=== PATIENT | female | born 1960 | race Caucasian/White ===

== ENCOUNTER 2017-12-30 10:04 | Emergency (ER) | payer OTHER, MEDICAID, SELFPAY ==
[2017-12-30 10:13] VITALS: BP 139/79; PULSE 101; RESP 15; TEMP 37; O2SAT 97; BMI 20.3
--- NOTE | 2017-12-30 10:13 | DI.RAD.S_ITS ---
PROCEDURE: XR WRIST RT MIN 3V INDICATIONS: injury TECHNIQUE: 4 views of the wrist were acquired. COMPARISON: None. FINDINGS: Bones: There is a bone fragment identified on the dorsal aspect of the carpus on the lateral view, compatible with a fracture of the triquetrum. No additional fractures are evident. There is no widening of the scapholunate or lunotriquetral joints. Mild degenerative changes are noted involving the joints of the wrist. No suspicious osseous lesions are present. There is no dislocation. Soft tissues: No suspicious soft tissue calcifications. Soft tissue swelling on the dorsal aspect of the wrist is evident. IMPRESSION: Small triquetral avulsion fracture. Dictated by: Tee Tubbs M.D. on 12/30/2017 at 11:10 Approved by: Tee Tubbs M.D. on 12/30/2017 at 11:12
--- NOTE | 2017-12-30 10:16 | ED_ITS ---
HPI - Extremity Injury (Upper) General Chief Complaint: Extremity Injury, Upper Stated Complaint: HIKING, TRIPPED AND FELL Time Seen by Provider: 12/30/17 10:09 Source: patient Mode of arrival: ambulatory Limitations: no limitations History of Present Illness HPI narrative: 57-year-old female was hiking yesterday and tripped over a root and sustained a FOOSH injury to her right wrist. States that yesterday he was not hurting until last evening. She states that this morning head is more swollen and more painful. Took Motrin prior to arrival. Related Data Home Medications Medication Instructions Recorded Confirmed albuterol sulfate [ProAir HFA] 2 dose INHALATION Q4-6H PRN 12/30/17 12/30/17 empagliflozin [Jardiance] 12.5 mg PO DAILY 12/30/17 12/30/17 glipizide 10 mg PO BID 12/30/17 12/30/17 lisinopril 20 mg PO DAILY 12/30/17 12/30/17 metformin 1,000 mg PO BID 12/30/17 12/30/17 Allergies Allergy/AdvReac Type Severity Reaction Status Date / Time No Known Drug Allergies Allergy Verified 12/30/17 10:13 Review of Systems Constitutional Denies chills, Denies fever(s), Denies lethargy and Denies weakness Musculoskeletal Comments: No right shoulder pain No right elbow pain Does have pain with the right wrist Integumentary/Breasts Reports lesions, Reports rash and Reports wounds Neurologic Denies weakness Comments: Some tingling in her fingers otherwise no other neurologic symptoms Hematologic/Lymphatic Denies easy bleeding and Denies easy bruising [facility] Medical History Asthma (Acute) Diabetes (Acute) Hypertension (Acute) Smoker (Acute) Social History Smoking Status: Current every day smoker Exam Initial Vital Signs Initial Vital Signs: Vital Signs Temperature 98.6 F 12/30/17 10:13 Pulse Rate 101 H 12/30/17 10:13 Respiratory Rate 15 12/30/17 10:13 Blood Pressure 139/79 H 12/30/17 10:13 Pulse Oximetry 97 12/30/17 10:13 HENMT Head: normal to inspection and normocephalic Resp Effort & Inspection: normal respiratory effort Cardio Pulses: radial pulses present Skin Lesions: no lesions Rashes: no rashes Neuro Other: Sensation intact to light touch right upper extremity Extrem General: capillary refill normal Other: Right shoulder unremarkable for range of motion Right elbow unremarkable for range of motion Patient able to pronate without problems right upper extremity Pain with supination right upper extremity Pain with flexion or extension of the right wrist right upper extremity Fingers right hand unremarkable Swelling on the dorsum of the right hand with tenderness to palpation over the ulnar aspect. Course Orders Ordered: ED Orders 12/30/17 10:13 XR wrist RT min 3V Stat Discontinued Medications Acetaminophen (Tylenol) 975 mg PO NOW ONE Stop: 12/30/17 10:18 Last Admin: 12/30/17 10:18 Dose: 975 mg Vital Signs - 8 hr 12/30/17 10:13 12/30/17 10:22 Temperature 98.6 F Pulse Rate 101 H Pulse Rate [Right Radial] 72 Respiratory Rate 15 Blood Pressure 139/79 H Pulse Oximetry 97 MDM - Extremity Injury (Upper) Imaging Data Wrist x-ray: Radiologist's impression: PROCEDURE: XR WRIST RT MIN 3V INDICATIONS: injury TECHNIQUE: 4 views of the wrist were acquired. COMPARISON: None. FINDINGS: Bones: There is a bone fragment identified on the dorsal aspect of the carpus on the lateral view, compatible with a fracture of the triquetrum. No additional fractures are evident. There is no widening of the scapholunate or lunotriquetral joints. Mild degenerative changes are noted involving the joints of the wrist. No suspicious osseous lesions are present. There is no dislocation. Soft tissues: No suspicious soft tissue calcifications. Soft tissue swelling on the dorsal aspect of the wrist is evident. IMPRESSION: Small triquetral avulsion fracture. Dictated by: Tee Tubbs M.D. on 12/30/2017 at 11:10 MDM Narrative Medical decision making narrative: Patient neurovascularly intact. Small triquetrum all avulsion fracture right wrist. Patient provided with wrist splint. She was given care instructions. She was instructed to follow up with her primary doctor for further evaluation. She was given return precautions. She expressed understanding and agreement of plan Discharge Plan Departure Patient Disposition: Home, Self-Care Clinical Impression: Fracture of triquetrum of right wrist Instructions: DI for a Hand Fracture Activity Restrictions/Additional Instructions: Wear the splint like we discussed. Call your primary doctor on Monday for a follow-up. Return to the emergency department for any new or worsening symptoms Prescriptions: No Action lisinopril 20 mg tablet 20 mg PO DAILY RF: 0 glipizide 10 mg tablet 10 mg PO BID RF: 0 metformin 1,000 mg tablet 1,000 mg PO BID RF: 0 albuterol sulfate [ProAir HFA] 90 mcg/actuation HFA aerosol inhaler 2 dose Inhalation Q4-6H PRN (Reason: Wheezing) RF: 0 empagliflozin [Jardiance] 25 mg tablet 12.5 mg PO DAILY RF: 0
[2017-12-30] MEDS: ACETAMINOPHEN 325 MG TABLET 975 MG PO (10:18)
[2017-12-30 10:22] VITALS: PULSE 72
[2017-12-30 11:24] VITALS: BP 140/85; PULSE 82; RESP 16; O2SAT 99
== END 2017-12-30 11:32 | disposition home or self-care (01) ==
PROVIDERS: Emergency Provider Emergency Medicine; PCP Family Medicine
DX: S62.111A Displaced fracture of triquetrum [cuneiform] bone, right wrist, initial encounter for closed fracture (principal); W01.0XXA Fall on same level from slipping, tripping and stumbling without subsequent striking against object, initial encounter; Y93.01 Activity, walking, marching and hiking
CPT/HCPCS: 73110; 99283

== ENCOUNTER 2018-02-09 14:22 | Emergency (ER) | payer OTHER, MEDICAID, SELFPAY ==
[2018-02-09 14:31] VITALS: BP 75/45; PULSE 74; RESP 16; O2SAT 95; BMI 20.3
[2018-02-09] MEDS: SODIUM CHLORIDE 0.9% 1,000 ML 1000 ML IV (14:52)
[2018-02-09 15:00] LABS: Add Manual Diff / Slide Review NO; Eosinophils Percent Auto 2.4 % (2-4); Hematocrit 47.5 % (36-46); Hemoglobin 15.9 g/dL (12.0-16.0); Lymphocytes Percent Auto 52.1 % (25-40); Mean Corpuscular HGB Conc 33.4 % (30-36); Mean Corpuscular Hemoglobin 31.9 PG (26-34); Mean Corpuscular Volume 95.5 fL (80-100); Monocytes Percent Auto 8.2 % (3-14); Neutrophils Absolute Auto 2100 /uL (3000-5900); Neutrophils Percent Auto 36.3 % (50-75); Platelet Count 248 X10^3/uL (150-400); Red Blood Cell Count 4.98 X10^6/uL (4.0-5.2); Red Cell Distribution Width 14.8 % (11.6-14.8); White Blood Cell Count 5.7 X10^3/uL (4.5-11.0)
[2018-02-09 15:05] LABS: Alanine Aminotransferase 60 IU/L (9-52); Albumin 4.4 g/dL (3.5-5.0); Albumin Globulin Ratio 1.8 (1.0-2.8); Alkaline Phosphatase 61 U/L (38-126); Aspartate Aminotransferase 105 IU/L (14-36); BUN Creatinine Ratio 23.6 (6-22); Bilirubin Total 0.6 mg/dL (0.2-1.3); Bilirubin Unconjugated 0.3 mg/dL (0.0-1.1); Blood Urea Nitrogen 26 mg/dL (7-17); Calcium 8.9 mg/dL (8.4-10.2); Carbon Dioxide 28 mmol/L (22-32); Chloride 92 mmol/L (98-107); Estimated Glomerular Filt Rate 51.2 mL/min (>60); Globulin 2.5 g/dL (1.7-4.1); Glucose 212 mg/dL (70-100); Lipase 804 U/L (23-300); Magnesium 1.9 mg/dL (1.6-2.3); Sodium 136 mmol/L (137-145); Total Protein 6.9 g/dL (6.3-8.2)
[2018-02-09 15:09] LABS: HEMOLYSIS 29 (0-50); Potassium 3.5 mmol/L (3.4-5.1)
--- NOTE | 2018-02-09 16:12 | ED_ITS ---
HPI - Alcohol <TIFFANIE Kingsley - Last Filed: 02/09/18 22:00> General Chief Complaint: Toxicology Problem Stated Complaint: DRINKING OVER A WEEK, DIABETES, CAN'T WALK Time Seen by Provider: 02/09/18 16:36 History of Present Illness HPI narrative: 58-year-old female history of alcohol abuse here for request for detox treatment. She states that she had a year of sobriety and then slipped and started drinking again 7 months ago. She reports her liver release in the that she has been drinking approximately a 5th a day of vodka. Over this time frame. She reports her last drink was just prior to arrival. She denies any suicidal ideation she denies any homicidal ideation. She does state that she does get withdrawal symptoms such hands shaking in the past. She denies any physical complaints at this time. She is willing to do inpatient detox treatment MD complaint: alcohol intoxication, alcohol dependence and desires rehab Related Data Home Medications Medication Instructions Recorded Confirmed albuterol sulfate [ProAir HFA] 2 dose INHALATION Q4-6H PRN 12/30/17 02/09/18 empagliflozin [Jardiance] 12.5 mg PO DAILY 12/30/17 02/09/18 glipizide 10 mg PO BID 12/30/17 02/09/18 lisinopril 20 mg PO DAILY 12/30/17 02/09/18 metformin 1,000 mg PO BID 12/30/17 02/09/18 Previous Rx's Medication Instructions Recorded lorazepam 1 mg PO DAILY #18 tab 02/09/18 ondansetron 4 mg PO Q6-8H PRN #12 tab 02/09/18 Allergies Allergy/AdvReac Type Severity Reaction Status Date / Time No Known Drug Allergies Allergy Verified 12/30/17 10:13 Review of Systems <TIFFANIE Kingsley - Last Filed: 02/09/18 22:00> Review of Systems Patient desires alcohol detox Eyes Denies change in vision, Denies eye discharge, Denies irritation and Denies loss of vision ENT Ears, Nose, Mouth, and Throat: Denies change in voice, Denies neck pain and Denies sore throat Cardiovascular Denies chest pain, Denies irregular heart rhythm, Denies lightheadedness, Denies palpitations, Denies dyspnea, Denies dyspnea on exertion and Denies orthopnea Respiratory Denies cough, Denies dyspnea, Denies dyspnea on exertion and Denies wheezing Gastrointestinal Gastrointestinal: Denies abdominal pain, Denies change in bowel habits, Denies diarrhea, Denies nausea and Denies vomiting Genitourinary Denies hematuria, Denies flank pain, Denies urinary incontinence and Denies urinary urgency Musculoskeletal Denies neck pain Integumentary/Breasts Denies pruritus, Denies erythema, Denies rash and Denies wounds Neurologic Denies confusion and Denies loss of vision Psychiatric Denies anxiety, Denies confusion, Denies depression, Denies homicidal ideation and Denies suicidal ideation Endocrine Denies palpitations Hematologic/Lymphatic Denies easy bruising Allergic/Immunologic Denies wheezing Exam <TIFFANIE Kingsley - Last Filed: 02/09/18 22:00> Initial Vital Signs Initial Vital Signs: Vital Signs Pulse Rate 74 02/09/18 14:31 Respiratory Rate 16 02/09/18 14:31 Blood Pressure 75/45 L 02/09/18 14:31 Pulse Oximetry 95 02/09/18 14:31 Const General: cooperative and well developed Nutritional Appearance: well nourished Orientation: alert, awake, oriented x3 and not confused [facility] Mouth: oral mucosae normal and moist mucous membranes Eyes Eyelids: eyelids normal Conjunctivae: conjunctivae normal Sclera: sclerae normal Pupils: PERRL Resp Effort & Inspection: normal respiratory effort, able to speak in complete sentences, no respiratory distress and no use of accessory muscles Auscultation: clear to auscultation bilaterally, no rales, no rhonchi and no wheezes Cardio Rate: regular rate Rhythm: regular rhythm Heart Sounds: no click, no gallops, no murmurs and no rubs Skin General: no rashes or lesions noted, No jaundice and No petechiae Neuro General: alert, oriented x3, gait normal and no focal motor deficits Speech: speech normal Psych Appearance: well kempt Mental Status: mental status grossly normal Attitude: cooperative Thought Content: normal and suicidality Judgment: judgment good <Sandy Dawson DO - Last Filed: 02/10/18 03:22> Initial Vital Signs Initial Vital Signs: Vital Signs Pulse Rate 74 02/09/18 14:31 Respiratory Rate 16 02/09/18 14:31 Blood Pressure 75/45 L 02/09/18 14:31 Pulse Oximetry 95 02/09/18 14:31 Course <TIFFANIE Kingsley - Last Filed: 02/09/18 22:00> Orders Ordered: Discontinued Medications Sodium Chloride (Normal Saline 0.9%) 1,000 mls @ 1,000 mls/hr IV BOLUS ONE Stop: 02/09/18 15:50 Last Infusion: 02/09/18 16:01 Dose: 0 mls/hr Admin: 02/09/18 14:52 Dose: 1,000 mls/hr Lorazepam (Ativan) 1 mg PO NOW ONE Stop: 02/09/18 18:44 Last Admin: 02/09/18 19:06 Dose: 1 mg Vital Signs - 8 hr 02/09/18 20:01 Temperature 97.6 F Pulse Rate 90 Respiratory Rate 18 Blood Pressure [Left Arm] 153/92 H Pulse Oximetry 96 <Sandy Dawson DO - Last Filed: 02/10/18 03:22> Orders Ordered: Discontinued Medications Sodium Chloride (Normal Saline 0.9%) 1,000 mls @ 1,000 mls/hr IV BOLUS ONE Stop: 02/09/18 15:50 Last Infusion: 02/09/18 16:01 Dose: 0 mls/hr Admin: 02/09/18 14:52 Dose: 1,000 mls/hr Lorazepam (Ativan) 1 mg PO NOW ONE Stop: 02/09/18 18:44 Last Admin: 02/09/18 19:06 Dose: 1 mg Vital Signs - 8 hr 02/09/18 20:01 Temperature 97.6 F Pulse Rate 90 Respiratory Rate 18 Blood Pressure [Left Arm] 153/92 H Pulse Oximetry 96 MDM - Alcohol <TIFFANIE Kingsley - Last Filed: 02/09/18 22:00> Lab Data Result diagrams: 02/09/18 14:40 02/09/18 14:40 Labs: Lab Results 02/09/18 02/09/18 02/09/18 Range/Units 14:40 14:40 17:20 WBC 5.7 (4.5-11.0) X10^3/uL RBC 4.98 (4.0-5.2) X10^6/uL Hgb 15.9 (12.0-16.0) g/dL Hct 47.5 H (36-46) % MCV 95.5 (80-100) fL MCH 31.9 (26-34) PG MCHC 33.4 (30-36) % RDW 14.8 (11.6-14.8) % Plt Count 248 (150-400) X10^3/uL Neut % (Auto) 36.3 L (50-75) % Lymph % (Auto) 52.1 H (25-40) % Scott % (Auto) 8.2 (3-14) % Eos % (Auto) 2.4 (2-4) % Baso % (Auto) 1.0 (0-2) % Neut # (Auto) 2100 L (5399-7920) /uL Sodium 136 L (137-145) mmol/L Potassium 3.5 (3.4-5.1) mmol/L Chloride 92 L (98-107) mmol/L Carbon Dioxide 28 (22-32) mmol/L BUN 26 H (7-17) mg/dL Creatinine 1.10 H (0.52-1.04) mg/dL Estimated GFR 51.2 L (>60) mL/min BUN/Creatinine Ratio 23.6 H (6-22) Glucose 212 H (70-100) mg/dL Calcium 8.9 (8.4-10.2) mg/dL Magnesium 1.9 (1.6-2.3) mg/dL Total Bilirubin 0.6 (0.2-1.3) mg/dL Conjugated Bilirubin 0.0 (0.0-0.3) md/dL Unconjugated Bilirubin 0.3 (0.0-1.1) mg/dL AST 105 H (14-36) IU/L ALT 60 H (9-52) IU/L Alkaline Phosphatase 61 (38-126) U/L Total Protein 6.9 (6.3-8.2) g/dL Albumin 4.4 (3.5-5.0) g/dL Globulin 2.5 (1.7-4.1) g/dL Albumin/Globulin Ratio 1.8 (1.0-2.8) Lipase 804 H (23-300) U/L Urine Opiates Screen Negative (Negative) Ur Oxycodone Screen Negative (Negative) Urine Methadone Screen Negative (Negative) Ur Barbiturates Screen Negative (Negative) U Tricyclic Antidepress Negative (Negative) Ur Phencyclidine Scrn Negative (Negative) Ur Amphetamines Screen Negative (Negative) U Methamphetamines Scrn Negative (Negative) Ur MDMA Scrn (Ecstasy) Negative (Negative) U Benzodiazepines Scrn Negative (Negative) Urine Cocaine Screen Negative (Negative) U Marijuana (THC) Screen Negative (Negative) Ethyl Alcohol 334 mg/dL MDM Narrative Medical decision making narrative: CBC was obtained and was unremarkable. Chem panel shows decreased GFR and also increased lipase believe this is due to alcohol and will hopefully resolve with alcohol cessation. She is prescribed Ativan taper dose and also Zofran to help with the nausea. Urine drug screen was negative. Medically cleared for inpatient detox. She is accepted by [facility] [place] for inpatient detox. Care as [facility] by [facility]. Follow up with primary care provider. Return emergency room for any worsening symptoms. <Sandy Dawson, - Last Filed: 02/10/18 03:22> Lab Data Labs: Lab Results 02/09/18 02/09/18 02/09/18 Range/Units 14:40 14:40 17:20 WBC 5.7 (4.5-11.0) X10^3/uL RBC 4.98 (4.0-5.2) X10^6/uL Hgb 15.9 (12.0-16.0) g/dL Hct 47.5 H (36-46) % MCV 95.5 (80-100) fL MCH 31.9 (26-34) PG MCHC 33.4 (30-36) % RDW 14.8 (11.6-14.8) % Plt Count 248 (150-400) X10^3/uL Neut % (Auto) 36.3 L (50-75) % Lymph % (Auto) 52.1 H (25-40) % Scott % (Auto) 8.2 (3-14) % Eos % (Auto) 2.4 (2-4) % Baso % (Auto) 1.0 (0-2) % Neut # (Auto) 2100 L (9696-3296) /uL Sodium 136 L (137-145) mmol/L Potassium 3.5 (3.4-5.1) mmol/L Chloride 92 L (98-107) mmol/L Carbon Dioxide 28 (22-32) mmol/L BUN 26 H (7-17) mg/dL Creatinine 1.10 H (0.52-1.04) mg/dL Estimated GFR 51.2 L (>60) mL/min BUN/Creatinine Ratio 23.6 H (6-22) Glucose 212 H (70-100) mg/dL Calcium 8.9 (8.4-10.2) mg/dL Magnesium 1.9 (1.6-2.3) mg/dL Total Bilirubin 0.6 (0.2-1.3) mg/dL Conjugated Bilirubin 0.0 (0.0-0.3) md/dL Unconjugated Bilirubin 0.3 (0.0-1.1) mg/dL AST 105 H (14-36) IU/L ALT 60 H (9-52) IU/L Alkaline Phosphatase 61 (38-126) U/L Total Protein 6.9 (6.3-8.2) g/dL Albumin 4.4 (3.5-5.0) g/dL Globulin 2.5 (1.7-4.1) g/dL Albumin/Globulin Ratio 1.8 (1.0-2.8) Lipase 804 H (23-300) U/L Urine Opiates Screen Negative (Negative) Ur Oxycodone Screen Negative (Negative) Urine Methadone Screen Negative (Negative) Ur Barbiturates Screen Negative (Negative) U Tricyclic Antidepress Negative (Negative) Ur Phencyclidine Scrn Negative (Negative) Ur Amphetamines Screen Negative (Negative) U Methamphetamines Scrn Negative (Negative) Ur MDMA Scrn (Ecstasy) Negative (Negative) U Benzodiazepines Scrn Negative (Negative) Urine Cocaine Screen Negative (Negative) U Marijuana (THC) Screen Negative (Negative) Ethyl Alcohol 334 mg/dL Discharge Plan Departure Patient Disposition: Home, Self-Care Clinical Impression: Alcohol withdrawal syndrome Discharge Date/Time: 02/09/18 20:35 Interventions: ED Discharge Assessment Last Done: 02/09/18 20:35 Instructions: DI for Alcohol Abuse Activity Restrictions/Additional Instructions: Check-in into crisis [facility] center as specified time this evening. You are prescribed Ativan taper dose to help with withdrawal syndromes. You are also prescribe Zofran to help with the nausea vomiting use as directed. Care as directed by crisis [facility]. Follow up with her primary care provider next week for re-evaluation. For any worsening symptoms return to the emergency room. Prescriptions: New lorazepam 1 mg tablet 1 mg PO DAILY Qty: 18 RF: 0 ondansetron 4 mg tablet,disintegrating 4 mg PO Q6-8H PRN (Reason: nausea and vomiting) Qty: 12 RF: 0 No Action lisinopril 20 mg tablet 20 mg PO DAILY RF: 0 glipizide 10 mg tablet 10 mg PO BID RF: 0 metformin 1,000 mg tablet 1,000 mg PO BID RF: 0 albuterol sulfate [ProAir HFA] 90 mcg/actuation HFA aerosol inhaler 2 dose Inhalation Q4-6H PRN (Reason: Wheezing) RF: 0 empagliflozin [Jardiance] 25 mg tablet 12.5 mg PO DAILY RF: 0 Referrals: Edgardo Plunkett DO [Primary Care Provider] - <Sandy Dawson DO - Last Filed: 02/10/18 03:22> Cosign ED Attending Shyamature Attestation: I was immediately available in the department for consultation. Documentation has been reviewed. I agree with assessment and plan.
[2018-02-09 16:19] VITALS: BP 107/73; PULSE 86; RESP 18; TEMP 36.1; O2SAT 96
[2018-02-09 16:37] LABS: Ethanol (ETOH) 334 mg/dL
[2018-02-09 17:38] LABS: Urine Amphetamines Negative (Negative); Urine Barbiturates Negative (Negative); Urine Benzodiazepines Negative (Negative); Urine Cocaine Negative (Negative); Urine MDMA Negative (Negative); Urine Methadone Negative (Negative); Urine Methamphetamines Negative (Negative); Urine Morphine/Opi cutoff 2000 Negative (Negative); Urine Oxycodone Negative (Negative); Urine Phencyclidine Negative (Negative); Urine Tetrahydrocannabinol Negative (Negative); Urine Tricyclic Antidepressant Negative (Negative)
[2018-02-09 18:51] VITALS: BP 147/83; PULSE 80; RESP 16; O2SAT 96
[2018-02-09] MEDS: LORazepam 0.5 MG TABLET 1 MG PO (19:06)
[2018-02-09 20:01] VITALS: BP 153/92; PULSE 90; RESP 18; TEMP 36.4; O2SAT 96
== END 2018-02-09 20:35 | disposition home or self-care (01) ==
PROVIDERS: Emergency Medicine; Emergency Provider Nurse Practitioner Family; PCP Family Medicine
DX: F10.239 Alcohol dependence with withdrawal, unspecified (principal)
CPT/HCPCS: 36591; 80053; 80076; 80305; 80320; 82075; 82962; 83690; 83735; 85025; 96360; 99283; 99284

== ENCOUNTER 2018-04-14 06:54 | Inpatient (IN) | payer OTHER, MEDICAID, SELFPAY ==
[2018-04-14] VITALS (19 sets, daily range): BP systolic 86–148; BP diastolic 53–91; PULSE 68–111; RESP 12–23; TEMP 36.6–36.8; O2SAT 96–99; BMI 18.8; BMI 17.7
--- NOTE | 2018-04-14 07:15 | ED.NAVMDI ---
HPI - Nausea/Vomiting/Diarrhea General Chief complaint: GI Bleed Stated complaint: needs to detox Time Seen by Provider: 04/14/18 07:06 Source: patient and old records reviewed Mode of arrival: ambulatory Limitations: no limitations History of Present Illness HPI Narrative: Patient is a 58-year-old female who presents with all vomiting and shaking. She is an alcoholic who drinks a pt a day and has not had a drink for 2 and half days because she wants to stop. She is subsequently started of vomiting a dark brown coffee-ground like substance. She has had about 5-6 episodes. No diarrhea or black stools. No vomiting of bright red blood. No history of varices. She has abdominal pain unable to eat or drink anything. The diarrhea no fever. She does have some mild shakes now. MD complaint: nausea, vomiting and abdominal pain Related Data Home Medications Medication Instructions Recorded Confirmed albuterol sulfate [ProAir HFA] 2 dose INHALATION Q4-6H PRN 12/30/17 04/14/18 empagliflozin [Jardiance] 12.5 mg PO DAILY 12/30/17 04/14/18 glipizide 10 mg PO BID 12/30/17 04/14/18 lisinopril 20 mg PO DAILY 12/30/17 04/14/18 metformin 1,000 mg PO BID 12/30/17 04/14/18 Allergies Allergy/AdvReac Type Severity Reaction Status Date / Time No Known Drug Allergies Allergy Verified 12/30/17 10:13 Review of Systems Review of Systems All systems reviewed & are unremarkable except as noted in HPI and below Constitutional Denies chills, Denies fever(s), Denies lethargy and Denies weakness Cardiovascular Denies chest pain, Denies irregular heart rhythm, Denies lightheadedness, Denies palpitations, Denies dyspnea, Denies dyspnea on exertion and Denies orthopnea Respiratory Denies cough, Denies dyspnea, Denies dyspnea on exertion and Denies wheezing Gastrointestinal Gastrointestinal: Reports as per HPI Musculoskeletal Denies back pain, Denies muscle weakness, Denies numbness and Denies tingling Integumentary/Breasts Denies pruritus, Denies erythema, Denies rash and Denies wounds Neurologic Denies numbness, Denies tingling, Reports tremor(s) and Denies weakness Psychiatric Reports as per HPI Comments: Alcohol abuse Endocrine Denies palpitations Allergic/Immunologic Denies wheezing PFSH Medical History Bunion, left (Acute) History of ectopic (Acute) Alcohol abuse (Acute) Asthma (Acute) Diabetes (Acute) Hypertension (Acute) Smoker (Acute) Surgical History Postsurgical arthrodesis status (Acute ~2007) Social History household members: spouse Smoking Status: Current every day smoker alcohol intake: current Exam Initial Vital Signs Initial Vital Signs: Vital Signs Temperature 97.9 F 04/14/18 07:10 Pulse Rate 111 H 04/14/18 07:10 Respiratory Rate 16 04/14/18 07:10 Blood Pressure 104/79 04/14/18 07:10 Pulse Oximetry 99 04/14/18 07:10 GENERAL: Thin female appears older than stated a HEENT: Head atraumatic,EOMI, pupils reactive, neck is supple CARDIOVASCULAR: Tachycardia no murmur no rubs RESPIRATORY: Breath sounds equal bilaterally, no wheezes rales or rhonchi. ABDOMEN: Soft, diffusely tender. Normoactive bowel sounds all 4 quadrants. No guarding or rebound. EXTREMITIES: Normal range of motion, no clubbing or edema. Neurovascularly intact NEUROLOGICAL: Alert and oriented x4.Normal gait and speech. Cranial nerves II through XII grossly intact. + tremor SKIN: Warm, dry, no laceration, no petechiae, no rashes or lesions. No jaundice Course Orders Ordered: ED Orders 04/14/18 07:24 Ketones (Beta-Hydroxybutyrate) Stat Lactate (Lactic Acid) Stat 04/14/18 07:25 Complete Blood Count AUTO DIFF Stat Comprehensive Metabolic Panel Stat Lipase Stat Partial Thromboplastin Time Stat Prothrombin Time INR Stat Type and Screen Stat 04/14/18 07:40 Ethanol (ETOH) Stat Troponin & CK Cardiac Panel Stat 04/14/18 08:00 EKG-12 Lead Stat 04/14/18 10:55 MRSA PCR Stat 04/14/18 11:25 Consult to Dietitian, Adult Routine 04/14/18 13:44 Gastric Occult with pH 04/15/18 05:00 Complete Blood Count AUTO DIFF DAILY Comprehensive Metabolic Panel DAILY 04/16/18 05:00 Complete Blood Count AUTO DIFF DAILY Comprehensive Metabolic Panel DAILY 04/17/18 05:00 Complete Blood Count AUTO DIFF DAILY Comprehensive Metabolic Panel DAILY Albuterol (Ventolin Hfa) 1 puff INH Q4H PRN PRN Reason: Wheezing Albuterol/Ipratropium (Duoneb) 3 ml INH RTQ6HR PRN PRN Reason: Shortness Of Breath Glipizide (Glucotrol) 10 mg PO BID [facility] Hydromorphone HCl (Dilaudid) 0.5 mg IV Q2H PRN PRN Reason: Pain, Moderate (4-6) Magnesium Sulfate 2 gm/ Folic Acid 1 mg/ Thiamine HCl 100 mg / Multivitamins 10 ml/ Sodium Chloride 1,015.2 mls @ 125 mls/hr IV NOW ONE Stop: 04/14/18 16:18 Last Infusion: 04/14/18 10:42 Dose: 125 mls/hr Admin: 04/14/18 09:03 Dose: 125 mls/hr Lactated Ringer's (Lactated Ringers) 1,000 mls @ 100 mls/hr IV CONT [facility] Octreotide Acetate 500 mcg/ (Sodium Chloride) 101 mls @ 10.1 mls/hr IV CONT [facility]; Protocol Insulin Aspart (Novolog Flexpen) 1 unit SUBCUT AC [facility]; Protocol Lisinopril (Zestril) 20 mg PO DAILY [facility] Lorazepam (Ativan) 1 mg IV Q1H PRN PRN Reason: Anxiety Lorazepam (Ativan) 2 mg IV Q1H PRN PRN Reason: Anxiety Nicotine (Nicoderm) 14 mg TOP DAILY [facility] Last Admin: 04/14/18 14:35 Dose: 14 mg Empagliflozin [ (Jardiance] 12.5 Mg)) 12.5 mg PO DAILY [facility] Last Admin: 04/14/18 14:35 Dose: Ondansetron HCl (Zofran) 4 mg IV Q4HR PRN PRN Reason: Nausea And Vomiting Pantoprazole Sodium (Protonix) 40 mg IV BID [facility] Last Admin: 04/14/18 14:24 Dose: Not Given Discontinued Medications Sodium Chloride (Normal Saline 0.9%) 1,000 mls @ 1,000 mls/hr IV BOLUS ONE Stop: 04/14/18 08:20 Last Infusion: 04/14/18 09:03 Dose: 0 mls/hr Admin: 04/14/18 07:56 Dose: 1,000 mls/hr Lorazepam (Ativan) 1 mg IV NOW ONE Stop: 04/14/18 07:23 Last Admin: 04/14/18 07:56 Dose: 1 mg Octreotide Acetate (Sandostatin) 50 mcg IV NOW ONE Stop: 04/14/18 13:19 Last Admin: 04/14/18 14:35 Dose: 50 mcg Ondansetron HCl (Zofran) 4 mg IV NOW ONE Stop: 04/14/18 07:22 Last Admin: 04/14/18 07:56 Dose: 4 mg Pantoprazole Sodium (Protonix) 40 mg IV NOW ONE Stop: 04/14/18 07:22 Last Admin: 04/14/18 07:56 Dose: 40 mg Vital Signs - 8 hr 04/14/18 07:10 04/14/18 07:30 04/14/18 07:56 Temperature 97.9 F Pulse Rate 111 H 107 H 102 H Respiratory Rate 16 14 Blood Pressure 104/79 Blood Pressure [102/69] 98/69 Pulse Oximetry 99 04/14/18 08:00 04/14/18 09:00 04/14/18 09:15 Temperature Pulse Rate 99 H 84 82 Respiratory Rate 20 19 17 Blood Pressure Blood Pressure [102/69] 102/69 86/53 L 100/79 Pulse Oximetry 98 96 04/14/18 09:30 04/14/18 10:00 04/14/18 11:03 Temperature 97.9 F Pulse Rate 80 80 96 H Respiratory Rate 19 19 16 Blood Pressure 103/72 Blood Pressure [102/69] 101/64 94/62 Pulse Oximetry 97 96 04/14/18 14:09 Temperature Pulse Rate 79 Respiratory Rate 17 Blood Pressure 107/82 Blood Pressure [102/69] Pulse Oximetry 99 Blood pressure at 9:47 a.m. 101/64 heart rate 81 MDM - Nausea/Vomiting/Diarrhea Medical Records Attestation: I reviewed the patient's medical records. Lab Data Attestation: I reviewed the patient's lab results. Anion Gap 32 Result diagrams: 04/14/18 07:25 04/14/18 07:25 Lab Results 04/14/18 04/14/18 04/14/18 Range/Units 07:24 07:24 07:25 WBC 9.0 (4.5-11.0) X10^3/uL RBC 4.37 (4.0-5.2) X10^6/uL Hgb 14.4 (12.0-16.0) g/dL Hct 42.6 (36-46) % MCV 97.4 (80-100) fL MCH 32.8 (26-34) PG MCHC 33.7 (30-36) % RDW 14.9 H (11.6-14.8) % Plt Count 171 (150-400) X10^3/uL Neut % (Auto) 83.7 H (50-75) % Lymph % (Auto) 8.2 L (25-40) % [place] % (Auto) 7.7 (3-14) % Eos % (Auto) 0.1 L (2-4) % Baso % (Auto) 0.3 (0-2) % Neut # (Auto) 7500 H (9692-5378) /uL PT (10.1-12.7) SECONDS INR (0.9-1.3) APTT (26.4-36.2) SECONDS Sodium (137-145) mmol/L Potassium (3.4-5.1) mmol/L Chloride (98-107) mmol/L Carbon Dioxide (22-32) mmol/L BUN (7-17) mg/dL Creatinine (0.52-1.04) mg/dL Estimated GFR (>60) mL/min BUN/Creatinine Ratio (6-22) Glucose (70-100) mg/dL Lactate 1.2 (0.7-2.1) mmol/L Calcium (8.4-10.2) mg/dL Total Bilirubin (0.2-1.3) mg/dL AST (14-36) IU/L ALT (9-52) IU/L Alkaline Phosphatase (38-126) U/L Total Creatine Kinase (30-135) U/L CK-MB (CK-2) (<2.37) ng/mL CK-MB (CK-2) Rel Index (1.5-5.0) % Troponin I (0.01-0.034) ng/mL Total Protein (6.3-8.2) g/dL Albumin (3.5-5.0) g/dL Globulin (1.7-4.1) g/dL Albumin/Globulin Ratio (1.0-2.8) Lipase (23-300) U/L Nasal Screen MRSA (PCR) (Negative) Ethyl Alcohol mg/dL Ketones 11.43 H (<0.27) mmol/L Blood Type Antibody Screen 04/14/18 04/14/18 04/14/18 Range/Units 07:25 07:25 07:25 WBC (4.5-11.0) X10^3/uL RBC (4.0-5.2) X10^6/uL Hgb (12.0-16.0) g/dL Hct (36-46) % MCV (80-100) fL MCH (26-34) PG MCHC (30-36) % RDW (11.6-14.8) % Plt Count (150-400) X10^3/uL Neut % (Auto) (50-75) % Lymph % (Auto) (25-40) % [place] % (Auto) (3-14) % Eos % (Auto) (2-4) % Baso % (Auto) (0-2) % Neut # (Auto) (0855-0372) /uL PT 10.1 (10.1-12.7) SECONDS INR 0.9 (0.9-1.3) APTT 32 (26.4-36.2) SECONDS Sodium 132 L (137-145) mmol/L Potassium 4.0 (3.4-5.1) mmol/L Chloride 87 L (98-107) mmol/L Carbon Dioxide 13 L (22-32) mmol/L BUN 24 H (7-17) mg/dL Creatinine 1.10 H (0.52-1.04) mg/dL Estimated GFR 51.2 L (>60) mL/min BUN/Creatinine Ratio 21.8 (6-22) Glucose 234 H (70-100) mg/dL Lactate (0.7-2.1) mmol/L Calcium 10.0 (8.4-10.2) mg/dL Total Bilirubin 1.2 (0.2-1.3) mg/dL AST 112 H (14-36) IU/L ALT 111 H (9-52) IU/L Alkaline Phosphatase 64 (38-126) U/L Total Creatine Kinase (30-135) U/L CK-MB (CK-2) (<2.37) ng/mL CK-MB (CK-2) Rel Index (1.5-5.0) % Troponin I (0.01-0.034) ng/mL Total Protein 7.7 (6.3-8.2) g/dL Albumin 5.3 H (3.5-5.0) g/dL Globulin 2.4 (1.7-4.1) g/dL Albumin/Globulin Ratio 2.2 (1.0-2.8) Lipase 144 (23-300) U/L Nasal Screen MRSA (PCR) (Negative) Ethyl Alcohol mg/dL Ketones (<0.27) mmol/L Blood Type O Negative Antibody Screen Negative 04/14/18 04/14/18 04/14/18 Range/Units 07:40 07:40 10:55 WBC (4.5-11.0) X10^3/uL RBC (4.0-5.2) X10^6/uL Hgb (12.0-16.0) g/dL Hct (36-46) % MCV (80-100) fL MCH (26-34) PG MCHC (30-36) % RDW (11.6-14.8) % Plt Count (150-400) X10^3/uL Neut % (Auto) (50-75) % Lymph % (Auto) (25-40) % [place] % (Auto) (3-14) % Eos % (Auto) (2-4) % Baso % (Auto) (0-2) % Neut # (Auto) (6592-3828) /uL PT (10.1-12.7) SECONDS INR (0.9-1.3) APTT (26.4-36.2) SECONDS Sodium (137-145) mmol/L Potassium (3.4-5.1) mmol/L Chloride (98-107) mmol/L Carbon Dioxide (22-32) mmol/L BUN (7-17) mg/dL Creatinine (0.52-1.04) mg/dL Estimated GFR (>60) mL/min BUN/Creatinine Ratio (6-22) Glucose (70-100) mg/dL Lactate (0.7-2.1) mmol/L Calcium (8.4-10.2) mg/dL Total Bilirubin (0.2-1.3) mg/dL AST (14-36) IU/L ALT (9-52) IU/L Alkaline Phosphatase (38-126) U/L Total Creatine Kinase 132 (30-135) U/L CK-MB (CK-2) 3.60 H (<2.37) ng/mL CK-MB (CK-2) Rel Index 2.7 (1.5-5.0) % Troponin I 0.029 (0.01-0.034) ng/mL Total Protein (6.3-8.2) g/dL Albumin (3.5-5.0) g/dL Globulin (1.7-4.1) g/dL Albumin/Globulin Ratio (1.0-2.8) Lipase (23-300) U/L Nasal Screen MRSA (PCR) Negative for mrsa (Negative) Ethyl Alcohol < 10 mg/dL Ketones (<0.27) mmol/L Blood Type Antibody Screen Point of Care Testing Glucose POC 160 ECG Data Attestation: I personally reviewed and interpreted this ECG as follows: Prior ECG tracings: not available for review Interpretation: Sinus rhythm rate 93 low voltage AR interval 164 QRS 88 QTC [address] changes. No priors to compare MDM Narrative Medical decision making narrative: Acidotic with normal lactate. She is a diabetic she has positive ketones. Alcoholic ketoacidosis vs starvation ketoacidosis. Heart rate has improved after normal saline. She is started on vitamin headache. She is no longer nauseous or vomiting. Hemoglobin and hematocrit are stable. She is given Protonix for a likely alcoholic gastritis. Dr. Butts updated on patient's symptoms and test results. Accepts to the ICU for likely alcohol withdrawal and ketoacidosis. Discharge Plan Departure Patient Disposition: Admitted As Inpatient Clinical Impression: Alcoholic ketoacidosis, Acute upper GI bleed Discharge Date/Time: 04/14/18 10:41 Interventions: ED Discharge Assessment Last Done: 04/14/18 10:41 Admit Date/Time: 04/14/18 09:28 Admit Provider: Rip Butts
--- NOTE | 2018-04-14 07:21 | ED_ITS ---
HPI - Nausea/Vomiting/Diarrhea General Chief complaint: GI Bleed Stated complaint: needs to detox Time Seen by Provider: 04/14/18 07:06 Source: patient and old records reviewed Mode of arrival: ambulatory Limitations: no limitations History of Present Illness HPI Narrative: Patient is a 58-year-old female who presents with all vomiting and shaking. She is an alcoholic who drinks a pt a day and has not had a drink for 2 and half days because she wants to stop. She is subsequently started of vomiting a dark brown coffee-ground like substance. She has had about 5-6 episodes. No diarrhea or black stools. No vomiting of bright red blood. No history of varices. She has abdominal pain unable to eat or drink anything. The diarrhea no fever. She does have some mild shakes now. MD complaint: nausea, vomiting and abdominal pain Related Data Home Medications Medication Instructions Recorded Confirmed albuterol sulfate [ProAir HFA] 2 dose INHALATION Q4-6H PRN 12/30/17 04/14/18 empagliflozin [Jardiance] 12.5 mg PO DAILY 12/30/17 04/14/18 glipizide 10 mg PO BID 12/30/17 04/14/18 lisinopril 20 mg PO DAILY 12/30/17 04/14/18 metformin 1,000 mg PO BID 12/30/17 04/14/18 Allergies Allergy/AdvReac Type Severity Reaction Status Date / Time No Known Drug Allergies Allergy Verified 12/30/17 10:13 Review of Systems Review of Systems All systems reviewed & are unremarkable except as noted in HPI and below Constitutional Denies chills, Denies fever(s), Denies lethargy and Denies weakness Cardiovascular Denies chest pain, Denies irregular heart rhythm, Denies lightheadedness, Denies palpitations, Denies dyspnea, Denies dyspnea on exertion and Denies orthopnea Respiratory Denies cough, Denies dyspnea, Denies dyspnea on exertion and Denies wheezing Gastrointestinal Gastrointestinal: Reports as per HPI Musculoskeletal Denies back pain, Denies muscle weakness, Denies numbness and Denies tingling Integumentary/Breasts Denies pruritus, Denies erythema, Denies rash and Denies wounds Neurologic Denies numbness, Denies tingling, Reports tremor(s) and Denies weakness Psychiatric Reports as per HPI Comments: Alcohol abuse Endocrine Denies palpitations Allergic/Immunologic Denies wheezing PFSH Medical History Bunion, left (Acute) History of ectopic (Acute) Alcohol abuse (Acute) Asthma (Acute) Diabetes (Acute) Hypertension (Acute) Smoker (Acute) Surgical History Postsurgical arthrodesis status (Acute ~2007) Social History household members: spouse Smoking Status: Current every day smoker alcohol intake: current Exam Initial Vital Signs Initial Vital Signs: Vital Signs Temperature 97.9 F 04/14/18 07:10 Pulse Rate 111 H 04/14/18 07:10 Respiratory Rate 16 04/14/18 07:10 Blood Pressure 104/79 04/14/18 07:10 Pulse Oximetry 99 04/14/18 07:10 GENERAL: Thin female appears older than stated a HEENT: Head atraumatic,EOMI, pupils reactive, neck is supple CARDIOVASCULAR: Tachycardia no murmur no rubs RESPIRATORY: Breath sounds equal bilaterally, no wheezes rales or rhonchi. ABDOMEN: Soft, diffusely tender. Normoactive bowel sounds all 4 quadrants. No guarding or rebound. EXTREMITIES: Normal range of motion, no clubbing or edema. Neurovascularly intact NEUROLOGICAL: Alert and oriented x4.Normal gait and speech. Cranial nerves II through XII grossly intact. + tremor SKIN: Warm, dry, no laceration, no petechiae, no rashes or lesions. No jaundice Course Orders Ordered: ED Orders 04/14/18 07:24 Ketones (Beta-Hydroxybutyrate) Stat Lactate (Lactic Acid) Stat 04/14/18 07:25 Complete Blood Count AUTO DIFF Stat Comprehensive Metabolic Panel Stat Lipase Stat Partial Thromboplastin Time Stat Prothrombin Time INR Stat Type and Screen Stat 04/14/18 07:40 Ethanol (ETOH) Stat Troponin & CK Cardiac Panel Stat 04/14/18 08:00 EKG-12 Lead Stat 04/14/18 10:55 MRSA PCR Stat 04/14/18 11:25 Consult to Dietitian, Adult Routine 04/14/18 13:44 Gastric Occult with pH 04/15/18 05:00 Complete Blood Count AUTO DIFF DAILY Comprehensive Metabolic Panel DAILY 04/16/18 05:00 Complete Blood Count AUTO DIFF DAILY Comprehensive Metabolic Panel DAILY 04/17/18 05:00 Complete Blood Count AUTO DIFF DAILY Comprehensive Metabolic Panel DAILY Albuterol (Ventolin Hfa) 1 puff INH Q4H PRN PRN Reason: Wheezing Albuterol/Ipratropium (Duoneb) 3 ml INH RTQ6HR PRN PRN Reason: Shortness Of Breath Glipizide (Glucotrol) 10 mg PO BID [facility] Hydromorphone HCl (Dilaudid) 0.5 mg IV Q2H PRN PRN Reason: Pain, Moderate (4-6) Magnesium Sulfate 2 gm/ Folic Acid 1 mg/ Thiamine HCl 100 mg / Multivitamins 10 ml/ Sodium Chloride 1,015.2 mls @ 125 mls/hr IV NOW ONE Stop: 04/14/18 16:18 Last Infusion: 04/14/18 10:42 Dose: 125 mls/hr Admin: 04/14/18 09:03 Dose: 125 mls/hr Lactated Ringer's (Lactated Ringers) 1,000 mls @ 100 mls/hr IV CONT [facility] Octreotide Acetate 500 mcg/ (Sodium Chloride) 101 mls @ 10.1 mls/hr IV CONT [facility] ; Protocol Insulin Aspart (Novolog Flexpen) 1 unit SUBCUT AC [facility]; Protocol Lisinopril (Zestril) 20 mg PO DAILY [facility] Lorazepam (Ativan) 1 mg IV Q1H PRN PRN Reason: Anxiety Lorazepam (Ativan) 2 mg IV Q1H PRN PRN Reason: Anxiety Nicotine (Nicoderm) 14 mg TOP DAILY [facility] Last Admin: 04/14/18 14:35 Dose: 14 mg Empagliflozin [ (Jardiance] 12.5 Mg)) 12.5 mg PO DAILY [facility] Last Admin: 04/14/18 14:35 Dose: Ondansetron HCl (Zofran) 4 mg IV Q4HR PRN PRN Reason: Nausea And Vomiting Pantoprazole Sodium (Protonix) 40 mg IV BID [facility] Last Admin: 04/14/18 14:24 Dose: Not Given Discontinued Medications Sodium Chloride (Normal Saline 0.9%) 1,000 mls @ 1,000 mls/hr IV BOLUS ONE Stop: 04/14/18 08:20 Last Infusion: 04/14/18 09:03 Dose: 0 mls/hr Admin: 04/14/18 07:56 Dose: 1,000 mls/hr Lorazepam (Ativan) 1 mg IV NOW ONE Stop: 04/14/18 07:23 Last Admin: 04/14/18 07:56 Dose: 1 mg Octreotide Acetate (Sandostatin) 50 mcg IV NOW ONE Stop: 04/14/18 13:19 Last Admin: 04/14/18 14:35 Dose: 50 mcg Ondansetron HCl (Zofran) 4 mg IV NOW ONE Stop: 04/14/18 07:22 Last Admin: 04/14/18 07:56 Dose: 4 mg Pantoprazole Sodium (Protonix) 40 mg IV NOW ONE Stop: 04/14/18 07:22 Last Admin: 04/14/18 07:56 Dose: 40 mg Vital Signs - 8 hr 04/14/18 07:10 04/14/18 07:30 04/14/18 07:56 Temperature 97.9 F Pulse Rate 111 H 107 H 102 H Respiratory Rate 16 14 Blood Pressure 104/79 Blood Pressure [102/69] 98/69 Pulse Oximetry 99 04/14/18 08:00 04/14/18 09:00 04/14/18 09:15 Temperature Pulse Rate 99 H 84 82 Respiratory Rate 20 19 17 Blood Pressure Blood Pressure [102/69] 102/69 86/53 L 100/79 Pulse Oximetry 98 96 04/14/18 09:30 04/14/18 10:00 04/14/18 11:03 Temperature 97.9 F Pulse Rate 80 80 96 H Respiratory Rate 19 19 16 Blood Pressure 103/72 Blood Pressure [102/69] 101/64 94/62 Pulse Oximetry 97 96 04/14/18 14:09 Temperature Pulse Rate 79 Respiratory Rate 17 Blood Pressure 107/82 Blood Pressure [102/69] Pulse Oximetry 99 Blood pressure at 9:47 a.m. 101/64 heart rate 81 MDM - Nausea/Vomiting/Diarrhea Medical Records Attestation: I reviewed the patient's medical records. Lab Data Attestation: I reviewed the patient's lab results. Anion Gap 32 Result diagrams: 04/14/18 07:25 04/14/18 07:25 Lab Results 04/14/18 04/14/18 04/14/18 Range/Units 07:24 07:24 07:25 WBC 9.0 (4.5-11.0) X10^3/uL RBC 4.37 (4.0-5.2) X10^6/uL Hgb 14.4 (12.0-16.0) g/dL Hct 42.6 (36-46) % MCV 97.4 (80-100) fL MCH 32.8 (26-34) PG MCHC 33.7 (30-36) % RDW 14.9 H (11.6-14.8) % Plt Count 171 (150-400) X10^3/uL Neut % (Auto) 83.7 H (50-75) % Lymph % (Auto) 8.2 L (25-40) % [place] % (Auto) 7.7 (3-14) % Eos % (Auto) 0.1 L (2-4) % Baso % (Auto) 0.3 (0-2) % Neut # (Auto) 7500 H (1202-4390) /uL PT (10.1-12.7) SECONDS INR (0.9-1.3) APTT (26.4-36.2) SECONDS Sodium (137-145) mmol/L Potassium (3.4-5.1) mmol/L Chloride (98-107) mmol/L Carbon Dioxide (22-32) mmol/L BUN (7-17) mg/dL Creatinine (0.52-1.04) mg/dL Estimated GFR (>60) mL/min BUN/Creatinine Ratio (6-22) Glucose (70-100) mg/dL Lactate 1.2 (0.7-2.1) mmol/L Calcium (8.4-10.2) mg/dL Total Bilirubin (0.2-1.3) mg/dL AST (14-36) IU/L ALT (9-52) IU/L Alkaline Phosphatase (38-126) U/L Total Creatine Kinase (30-135) U/L CK-MB (CK-2) (<2.37) ng/mL CK-MB (CK-2) Rel Index (1.5-5.0) % Troponin I (0.01-0.034) ng/mL Total Protein (6.3-8.2) g/dL Albumin (3.5-5.0) g/dL Globulin (1.7-4.1) g/dL Albumin/Globulin Ratio (1.0-2.8) Lipase (23-300) U/L Nasal Screen MRSA (PCR) (Negative) Ethyl Alcohol mg/dL Ketones 11.43 H (<0.27) mmol/L Blood Type Antibody Screen 04/14/18 04/14/18 04/14/18 Range/Units 07:25 07:25 07:25 WBC (4.5-11.0) X10^3/uL RBC (4.0-5.2) X10^6/uL Hgb (12.0-16.0) g/dL Hct (36-46) % MCV (80-100) fL MCH (26-34) PG MCHC (30-36) % RDW (11.6-14.8) % Plt Count (150-400) X10^3/uL Neut % (Auto) (50-75) % Lymph % (Auto) (25-40) % [place] % (Auto) (3-14) % Eos % (Auto) (2-4) % Baso % (Auto) (0-2) % Neut # (Auto) (5065-4390) /uL PT 10.1 (10.1-12.7) SECONDS INR 0.9 (0.9-1.3) APTT 32 (26.4-36.2) SECONDS Sodium 132 L (137-145) mmol/L Potassium 4.0 (3.4-5.1) mmol/L Chloride 87 L (98-107) mmol/L Carbon Dioxide 13 L (22-32) mmol/L BUN 24 H (7-17) mg/dL Creatinine 1.10 H (0.52-1.04) mg/dL Estimated GFR 51.2 L (>60) mL/min BUN/Creatinine Ratio 21.8 (6-22) Glucose 234 H (70-100) mg/dL Lactate (0.7-2.1) mmol/L Calcium 10.0 (8.4-10.2) mg/dL Total Bilirubin 1.2 (0.2-1.3) mg/dL AST 112 H (14-36) IU/L ALT 111 H (9-52) IU/L Alkaline Phosphatase 64 (38-126) U/L Total Creatine Kinase (30-135) U/L CK-MB (CK-2) (<2.37) ng/mL CK-MB (CK-2) Rel Index (1.5-5.0) % Troponin I (0.01-0.034) ng/mL Total Protein 7.7 (6.3-8.2) g/dL Albumin 5.3 H (3.5-5.0) g/dL Globulin 2.4 (1.7-4.1) g/dL Albumin/Globulin Ratio 2.2 (1.0-2.8) Lipase 144 (23-300) U/L Nasal Screen MRSA (PCR) (Negative) Ethyl Alcohol mg/dL Ketones (<0.27) mmol/L Blood Type O Negative Antibody Screen Negative 04/14/18 04/14/18 04/14/18 Range/Units 07:40 07:40 10:55 WBC (4.5-11.0) X10^3/uL RBC (4.0-5.2) X10^6/uL Hgb (12.0-16.0) g/dL Hct (36-46) % MCV (80-100) fL MCH (26-34) PG MCHC (30-36) % RDW (11.6-14.8) % Plt Count (150-400) X10^3/uL Neut % (Auto) (50-75) % Lymph % (Auto) (25-40) % [place] % (Auto) (3-14) % Eos % (Auto) (2-4) % Baso % (Auto) (0-2) % Neut # (Auto) (3888-2685) /uL PT (10.1-12.7) SECONDS INR (0.9-1.3) APTT (26.4-36.2) SECONDS Sodium (137-145) mmol/L Potassium (3.4-5.1) mmol/L Chloride (98-107) mmol/L Carbon Dioxide (22-32) mmol/L BUN (7-17) mg/dL Creatinine (0.52-1.04) mg/dL Estimated GFR (>60) mL/min BUN/Creatinine Ratio (6-22) Glucose (70-100) mg/dL Lactate (0.7-2.1) mmol/L Calcium (8.4-10.2) mg/dL Total Bilirubin (0.2-1.3) mg/dL AST (14-36) IU/L ALT (9-52) IU/L Alkaline Phosphatase (38-126) U/L Total Creatine Kinase 132 (30-135) U/L CK-MB (CK-2) 3.60 H (<2.37) ng/mL CK-MB (CK-2) Rel Index 2.7 (1.5-5.0) % Troponin I 0.029 (0.01-0.034) ng/mL Total Protein (6.3-8.2) g/dL Albumin (3.5-5.0) g/dL Globulin (1.7-4.1) g/dL Albumin/Globulin Ratio (1.0-2.8) Lipase (23-300) U/L Nasal Screen MRSA (PCR) Negative for mrsa (Negative) Ethyl Alcohol < 10 mg/dL Ketones (<0.27) mmol/L Blood Type Antibody Screen Point of Care Testing Glucose POC 160 ECG Data Attestation: I personally reviewed and interpreted this ECG as follows: Prior ECG tracings: not available for review Interpretation: Sinus rhythm rate 93 low voltage NV interval 164 QRS 88 QTC [address] changes. No priors to compare MDM Narrative Medical decision making narrative: Acidotic with normal lactate. She is a diabetic she has positive ketones. Alcoholic ketoacidosis vs starvation ketoacidosis. Heart rate has improved after normal saline. She is started on vitamin headache. She is no longer nauseous or vomiting. Hemoglobin and hematocrit are stable. She is given Protonix for a likely alcoholic gastritis. Dr. Butts updated on patient's symptoms and test results. Accepts to the ICU for likely alcohol withdrawal and ketoacidosis. Discharge Plan Departure Patient Disposition: Admitted As Inpatient Clinical Impression: Alcoholic ketoacidosis, Acute upper GI bleed Discharge Date/Time: 04/14/18 10:41 Interventions: ED Discharge Assessment Last Done: 04/14/18 10:41 Admit Date/Time: 04/14/18 09:28 Admit Provider: Rip Butts
[2018-04-14 07:47] LABS: INR 0.9 (0.9-1.3); Prothrombin Time 10.1 SECONDS (10.1-12.7)
[2018-04-14 07:50] LABS: PTT Partial Thromboplastin Tim 32 SECONDS (26.4-36.2)
[2018-04-14 07:52] LABS: Add Manual Diff / Slide Review NO; Alanine Aminotransferase 111 IU/L (9-52); Albumin 5.3 g/dL (3.5-5.0); Albumin Globulin Ratio 2.2 (1.0-2.8); Alkaline Phosphatase 64 U/L (38-126); Aspartate Aminotransferase 112 IU/L (14-36); BUN Creatinine Ratio 21.8 (6-22); Basophils Percent Auto 0.3 % (0-2); Bilirubin Total 1.2 mg/dL (0.2-1.3); Blood Urea Nitrogen 24 mg/dL (7-17); Carbon Dioxide 13 mmol/L (22-32); Chloride 87 mmol/L (98-107); Eosinophils Percent Auto 0.1 % (2-4); Estimated Glomerular Filt Rate 51.2 mL/min (>60); Globulin 2.4 g/dL (1.7-4.1); Glucose 234 mg/dL (70-100); HEMOLYSIS < 15 (0-50); Hematocrit 42.6 % (36-46); Hemoglobin 14.4 g/dL (12.0-16.0); Lipase 144 U/L (23-300); Lymphocytes Percent Auto 8.2 % (25-40); Mean Corpuscular HGB Conc 33.7 % (30-36); Mean Corpuscular Hemoglobin 32.8 PG (26-34); Mean Corpuscular Volume 97.4 fL (80-100); Monocytes Percent Auto 7.7 % (3-14); Neutrophils Absolute Auto 7500 /uL (3000-5900); Neutrophils Percent Auto 83.7 % (50-75); Platelet Count 171 X10^3/uL (150-400); Red Blood Cell Count 4.37 X10^6/uL (4.0-5.2); Red Cell Distribution Width 14.9 % (11.6-14.8); Sodium 132 mmol/L (137-145); Total Protein 7.7 g/dL (6.3-8.2)
[2018-04-14] MEDS: ONDANSETRON 4 MG/2 ML INJ IV ×3 (07:56→23:48)
[2018-04-14] MEDS: LORazepam 2 MG/ML SYRINGE 1 MG IV ×2 (07:56→20:19)
[2018-04-14] MEDS: PANTOPRAZOLE 40 MG VIAL IV ×2 (07:56→21:18)
[2018-04-14] MEDS: SODIUM CHLORIDE 0.9% 1,000 ML 1000 ML IV (07:56)
[2018-04-14 08:23] LABS: Lactate (Lactic Acid) 1.2 mmol/L (0.7-2.1)
[2018-04-14 08:50] LABS: Ketones (Beta-Hydroxybutyrate) 11.43 mmol/L (<0.27)
[2018-04-14] MEDS: MAGNESIUM SULFATE 2 GM, FOLIC ACID 1 MG, THIAMINE 100 MG, MULTIVITAMIN 10 ML in SODIUM ... IV (09:03)
[2018-04-14 09:04] LABS: Creatine Kinase 132 U/L (30-135)
[2018-04-14 09:17] LABS: Troponin I 0.029 ng/mL (0.01-0.034)
[2018-04-14 09:19] LABS: CKMB % Relative Index 2.7 % (1.5-5.0)
[2018-04-14 09:43] LABS: Ethanol (ETOH) < 10 mg/dL
--- NOTE | 2018-04-14 13:14 | PC.ADMIT ---
Addendum entered by Javy Wright R.N. 04/14/18 15:22: Called to Dr. Butts requesting clarification of diet order. TORB received for clear liquid diet. Original Note: [address] Admission Note: The patient,Mable Gonzalez,58 y/o, was given written information regarding hospital policies, unit procedures and contact persons. Patient's smoking status: Current every day smoker. Vital Signs - 8 hr 04/14/18 07:10 04/14/18 07:30 04/14/18 07:56 Temperature 97.9 F Pulse Rate 111 H 107 H 102 H Respiratory Rate 16 14 Blood Pressure 104/79 Blood Pressure [102/69] 98/69 Pulse Oximetry 99 04/14/18 08:00 04/14/18 09:00 04/14/18 09:15 Temperature Pulse Rate 99 H 84 82 Respiratory Rate 20 19 17 Blood Pressure Blood Pressure [102/69] 102/69 86/53 L 100/79 Pulse Oximetry 98 96 04/14/18 09:30 04/14/18 10:00 04/14/18 11:03 Temperature 97.9 F Pulse Rate 80 80 96 H Respiratory Rate 19 19 16 Blood Pressure 103/72 Blood Pressure [102/69] 101/64 94/62 Pulse Oximetry 97 96 Rec'd pt from ED 1050. Pt stood, pivoted, transferred to bed with SBA. AO x 3. Admission assessment completed. Pt is a good historian of health history. Reports she consumes at least a pint of vodka daily. Reports she has stopped drinking a couple of times in the past for approximately 6-12 months at a time. Reports she has had similar symptoms with n/v but denies seizure activity, hallucinations, delusions, violent activity. Currently CIWA rating is 5. Pt reports frequent falls at home as well. Oriented to room, ICU routine, bedside report. Educated on use of call light as well as high fall risk. Placed yellow socks and bed alarm on. Call light placed in pts hand. She verbalizes understanding of use and agrees to use it for any needs.
--- NOTE | 2018-04-14 13:37 | PM.HP.1 ---
History of Present Illness Date Patient Seen: 04/14/18 Time Patient Seen: 11:37 Chief complaint: needs to detox Narrative: Patient is a 58 years of age female with a long-standing history of alcohol abuse who notes she has been unable to drink alcohol or take food by mouth due to nausea vomiting and epigastric pain. Patient notes no prior history of pancreatitis. No history of GI bleeding and peptic ulcer disease. Patient notes she gave her her car keys about 4-5 days ago so that she could not elect to drive to [facility] to buy boPolyRemedye since the [facility] is about 8 miles from her home. Patient notes the nausea and vomiting started about 3 days ago. The epigastric pain started about 3 days ago. No associated shaking chills no cough. No neck pain no stiff neck stiffness. No headache complaint. No chest pain or shortness of breath Patient History Medical History Bunion, left (Acute) History of ectopic (Acute) Alcohol abuse (Acute) Asthma (Acute) Diabetes (Acute) Hypertension (Acute) Smoker (Acute) Surgical History Postsurgical arthrodesis status (Acute ~2007) Comment: Past medical history Alcoholism for many years since a teenager. Diabetes type 2 not on long-term insulin therapy Hypertension Depression treated in the past with either Zoloft or Wellbutrin No history of the following: No history of heart disease no stroke no hyperlipidemia no seizure history no thyroid disorder no DVT nor pulmonary embolism Social history Patient has been the past 14 years. Her is only a minimal drinker. 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 Family & Social History Social History: household members spouse Prior Living Arrangements House Safety & Behavioral: Feels Safe in Current Yes Environment Been Physically Hurt or No Threatened By a Person Suicidal Ideation Description None Suicide Plan Description No Plan Tobacco & Substance use: Tobacco type cigarettes Smoking Status Current every day smoker Smoking packs per day 1 alcohol intake current alcohol intake frequency 3 or more drinks per day Substance Use Type does not use Meds Home Medications Medication Instructions Recorded Confirmed Type albuterol sulfate [ProAir HFA] 2 dose INHALATION Q4-6H PRN 12/30/17 04/14/18 History empagliflozin [Jardiance] 12.5 mg PO DAILY 12/30/17 04/14/18 History glipizide 10 mg PO BID 12/30/17 04/14/18 History lisinopril 20 mg PO DAILY 12/30/17 04/14/18 History metformin 1,000 mg PO BID 12/30/17 04/14/18 History Allergies Allergy/AdvReac Type Severity Reaction Status Date / Time No Known Drug Allergies Allergy Verified 12/30/17 10:13 Review of Systems Review of Systems A 10 point system reviewed with patient and was negative except for the symptoms as described in the HPI Exam Vital Signs (past 8 hours): - 04/14/18 07:10 04/14/18 07:30 04/14/18 07:56 Temperature 97.9 F Pulse Rate 111 H 107 H 102 H Respiratory Rate 16 14 Blood Pressure 104/79 Blood Pressure [102/69] 98/69 Pulse Oximetry 99 04/14/18 08:00 04/14/18 09:00 04/14/18 09:15 Temperature Pulse Rate 99 H 84 82 Respiratory Rate 20 19 17 Blood Pressure Blood Pressure [102/69] 102/69 86/53 L 100/79 Pulse Oximetry 98 96 04/14/18 09:30 04/14/18 10:00 04/14/18 11:03 Temperature 97.9 F Pulse Rate 80 80 96 H Respiratory Rate 19 19 16 Blood Pressure 103/72 Blood Pressure [102/69] 101/64 94/62 Pulse Oximetry 97 96 Oxygen Delivery Method Room Air Oxygen Flow Rate 0 Narrative Exam Narrative: General appearance awake and alert tremulous somewhat cachectic appearing no apparent distress at rest Psychiatric well oriented to time place person mood is somewhat anxious affect appropriate\ Skin no rashes or lesions turgor normal nonjaundiced Eyes pupils are equal round and reactive to light Ears nose and throat hearing grossly intact dentition is good with no oropharyngeal lesions nose septum to midline no bleeding Respiratory fairly clear to auscultation with no wheezes or crackles Cardiovascular tachycardic rate of about 110-105 per minute no murmur noted +3 pulses to extremities GI tenderness noted epigastric area positive bowel sounds no distension no guarding no bruits Neurologic no focal neurologic changes cranial nerves 2-12 appear grossly intact mild tremors are noted at rest Musculo skeletal 5/5 motor strength no clubbing range of motion appears normal Objective Labs Result Diagrams: 04/14/18 07:25 04/14/18 07:25 Labs: Laboratory Results - last 24 hr 04/14/18 04/14/18 04/14/18 07:24 07:24 07:25 WBC 9.0 RBC 4.37 Hgb 14.4 Hct 42.6 MCV 97.4 MCH 32.8 MCHC 33.7 RDW 14.9 H Plt Count 171 Neut % (Auto) 83.7 H Lymph % (Auto) 8.2 L [place] % (Auto) 7.7 Eos % (Auto) 0.1 L Baso % (Auto) 0.3 Neut # (Auto) 7500 H PT INR APTT Sodium Potassium Chloride Carbon Dioxide BUN Creatinine Estimated GFR BUN/Creatinine Ratio Glucose Lactate 1.2 Calcium Total Bilirubin AST ALT Alkaline Phosphatase Total Creatine Kinase CK-MB (CK-2) CK-MB (CK-2) Rel Index Troponin I Total Protein Albumin Globulin Albumin/Globulin Ratio Lipase Nasal Screen MRSA (PCR) Ethyl Alcohol Ketones 11.43 H Blood Type Antibody Screen 04/14/18 04/14/18 04/14/18 07:25 07:25 07:25 WBC RBC Hgb Hct MCV MCH MCHC RDW Plt Count Neut % (Auto) Lymph % (Auto) [place] % (Auto) Eos % (Auto) Baso % (Auto) Neut # (Auto) PT 10.1 INR 0.9 APTT 32 Sodium 132 L Potassium 4.0 Chloride 87 L Carbon Dioxide 13 L BUN 24 H Creatinine 1.10 H Estimated GFR 51.2 L BUN/Creatinine Ratio 21.8 Glucose 234 H Lactate Calcium 10.0 Total Bilirubin 1.2 AST 112 H ALT 111 H Alkaline Phosphatase 64 Total Creatine Kinase CK-MB (CK-2) CK-MB (CK-2) Rel Index Troponin I Total Protein 7.7 Albumin 5.3 H Globulin 2.4 Albumin/Globulin Ratio 2.2 Lipase 144 Nasal Screen MRSA (PCR) Ethyl Alcohol Ketones Blood Type O Negative Antibody Screen Negative 04/14/18 04/14/18 04/14/18 07:40 07:40 10:55 WBC RBC Hgb Hct MCV MCH MCHC RDW Plt Count Neut % (Auto) Lymph % (Auto) [place] % (Auto) Eos % (Auto) Baso % (Auto) Neut # (Auto) PT INR APTT Sodium Potassium Chloride Carbon Dioxide BUN Creatinine Estimated GFR BUN/Creatinine Ratio Glucose Lactate Calcium Total Bilirubin AST ALT Alkaline Phosphatase Total Creatine Kinase 132 CK-MB (CK-2) 3.60 H CK-MB (CK-2) Rel Index 2.7 Troponin I 0.029 Total Protein Albumin Globulin Albumin/Globulin Ratio Lipase Nasal Screen MRSA (PCR) Negative for mrsa Ethyl Alcohol < 10 Ketones Blood Type Antibody Screen Assessment & Plan Plan: Assessment/Plan Narrative: Epigastric pain Unclear etiology. May be gastritis. Lipase level normal. Patient notes coffee-ground emesis in the past day or so. Could be Anabelle-Ascencio tear versus other etiology No history of endoscopy in the past. Will cover with IV Protonix as well as octreotide IV infusion Will obtain general surgeon consult Repeat labs in the morning. Monitor H&H Nausea and vomiting Antiemetic therapy to be provided. IV fluids Alcoholism with alcohol withdrawal syndrome CIWA Ativan protocol initiated 1-2 mg of Ativan IV to be provided based upon CIWA score between 8 and 20. Will consider phenobarbital if patient demonstrates a CIWA score 18-20 for more than 2-3 hours or CIWA score 21 or greater Dosing of the phenobarbital as normally 130-260 mg IV every 15-30 minutes as needed Note phenobarbital complements Ativan in terms of the mechanism to address alcohol withdrawal syndrome No Haldol since lowers seizure threshold Will check magnesium and follow Diabetes type 2 not on long-term insulin Will hold metformin Clear liquid diet to be provided as tolerated Insulin lispro sliding scale as needed Hypertension Continue home blood pressure meds as tolerated Time Spent With Patient Time with patient: Greater than 35 minutes (70 min)
--- NOTE | 2018-04-14 13:49 | P.HP_ITS ---
History of Present Illness Date Patient Seen: 04/14/18 Time Patient Seen: 11:37 Chief complaint: needs to detox Narrative: Patient is a 58 years of age female with a long-standing history of alcohol abuse who notes she has been unable to drink alcohol or take food by mouth due to nausea vomiting and epigastric pain. Patient notes no prior history of pancreatitis. No history of GI bleeding and peptic ulcer disease. Patient notes she gave her her car keys about 4-5 days ago so that she could not elect to drive to [facility] to buy [employer] since the [facility] is about 8 miles from her home. Patient notes the nausea and vomiting started about 3 days ago. The epigastric pain started about 3 days ago. No associated shaking chills no cough. No neck pain no stiff neck stiffness. No headache complaint. No chest pain or shortness of breath Patient History Medical History Bunion, left (Acute) History of ectopic (Acute) Alcohol abuse (Acute) Asthma (Acute) Diabetes (Acute) Hypertension (Acute) Smoker (Acute) Surgical History Postsurgical arthrodesis status (Acute ~2007) Comment: Past medical history Alcoholism for many years since a teenager. Diabetes type 2 not on long-term insulin therapy Hypertension Depression treated in the past with either Zoloft or Wellbutrin No history of the following: No history of heart disease no stroke no hyperlipidemia no seizure history no thyroid disorder no DVT nor pulmonary embolism Social history Patient has been the past 14 years. Her is only a minimal drinker. 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 Surgical history right ankle fusion about 6 years ago Family history Many family members with alcoholism including her father her mother her 2 brothers her uncle her aunt her cousins Patient notes she is [place] Family & Social History Social History: household members spouse Prior Living Arrangements House Safety & Behavioral: Feels Safe in Current Yes Environment Been Physically Hurt or No Threatened By a Person Suicidal Ideation Description None Suicide Plan Description No Plan Tobacco & Substance use: Tobacco type cigarettes Smoking Status Current every day smoker Smoking packs per day 1 alcohol intake current alcohol intake frequency 3 or more drinks per day Substance Use Type does not use Meds Home Medications Medication Instructions Recorded Confirmed Type albuterol sulfate [ProAir HFA] 2 dose INHALATION Q4-6H PRN 12/30/17 04/14/18 History empagliflozin [Jardiance] 12.5 mg PO DAILY 12/30/17 04/14/18 History glipizide 10 mg PO BID 12/30/17 04/14/18 History lisinopril 20 mg PO DAILY 12/30/17 04/14/18 History metformin 1,000 mg PO BID 12/30/17 04/14/18 History Allergies Allergy/AdvReac Type Severity Reaction Status Date / Time No Known Drug Allergies Allergy Verified 12/30/17 10:13 Review of Systems Review of Systems A 10 point system reviewed with patient and was negative except for the symptoms as described in the HPI Exam Vital Signs (past 8 hours): - 04/14/18 07:10 04/14/18 07:30 04/14/18 07:56 Temperature 97.9 F Pulse Rate 111 H 107 H 102 H Respiratory Rate 16 14 Blood Pressure 104/79 Blood Pressure [102/69] 98/69 Pulse Oximetry 99 04/14/18 08:00 04/14/18 09:00 04/14/18 09:15 Temperature Pulse Rate 99 H 84 82 Respiratory Rate 20 19 17 Blood Pressure Blood Pressure [102/69] 102/69 86/53 L 100/79 Pulse Oximetry 98 96 04/14/18 09:30 04/14/18 10:00 04/14/18 11:03 Temperature 97.9 F Pulse Rate 80 80 96 H Respiratory Rate 19 19 16 Blood Pressure 103/72 Blood Pressure [102/69] 101/64 94/62 Pulse Oximetry 97 96 Oxygen Delivery Method Room Air Oxygen Flow Rate 0 Narrative Exam Narrative: General appearance awake and alert tremulous somewhat cachectic appearing no apparent distress at rest Psychiatric well oriented to time place person mood is somewhat anxious affect appropriate\ Skin no rashes or lesions turgor normal nonjaundiced Eyes pupils are equal round and reactive to light Ears nose and throat hearing grossly intact dentition is good with no oropharyngeal lesions nose septum to midline no bleeding Respiratory fairly clear to auscultation with no wheezes or crackles Cardiovascular tachycardic rate of about 110-105 per minute no murmur noted +3 pulses to extremities GI tenderness noted epigastric area positive bowel sounds no distension no guarding no bruits Neurologic no focal neurologic changes cranial nerves 2-12 appear grossly intact mild tremors are noted at rest Musculo skeletal 5/5 motor strength no clubbing range of motion appears normal Objective Labs Result Diagrams: 04/14/18 07:25 04/14/18 07:25 Labs: Laboratory Results - last 24 hr 04/14/18 04/14/18 04/14/18 07:24 07:24 07:25 WBC 9.0 RBC 4.37 Hgb 14.4 Hct 42.6 MCV 97.4 MCH 32.8 MCHC 33.7 RDW 14.9 H Plt Count 171 Neut % (Auto) 83.7 H Lymph % (Auto) 8.2 L Barry % (Auto) 7.7 Eos % (Auto) 0.1 L Baso % (Auto) 0.3 Neut # (Auto) 7500 H PT INR APTT Sodium Potassium Chloride Carbon Dioxide BUN Creatinine Estimated GFR BUN/Creatinine Ratio Glucose Lactate 1.2 Calcium Total Bilirubin AST ALT Alkaline Phosphatase Total Creatine Kinase CK-MB (CK-2) CK-MB (CK-2) Rel Index Troponin I Total Protein Albumin Globulin Albumin/Globulin Ratio Lipase Nasal Screen MRSA (PCR) Ethyl Alcohol Ketones 11.43 H Blood Type Antibody Screen 04/14/18 04/14/18 04/14/18 07:25 07:25 07:25 WBC RBC Hgb Hct MCV MCH MCHC RDW Plt Count Neut % (Auto) Lymph % (Auto) Barry % (Auto) Eos % (Auto) Baso % (Auto) Neut # (Auto) PT 10.1 INR 0.9 APTT 32 Sodium 132 L Potassium 4.0 Chloride 87 L Carbon Dioxide 13 L BUN 24 H Creatinine 1.10 H Estimated GFR 51.2 L BUN/Creatinine Ratio 21.8 Glucose 234 H Lactate Calcium 10.0 Total Bilirubin 1.2 AST 112 H ALT 111 H Alkaline Phosphatase 64 Total Creatine Kinase CK-MB (CK-2) CK-MB (CK-2) Rel Index Troponin I Total Protein 7.7 Albumin 5.3 H Globulin 2.4 Albumin/Globulin Ratio 2.2 Lipase 144 Nasal Screen MRSA (PCR) Ethyl Alcohol Ketones Blood Type O Negative Antibody Screen Negative 04/14/18 04/14/18 04/14/18 07:40 07:40 10:55 WBC RBC Hgb Hct MCV MCH MCHC RDW Plt Count Neut % (Auto) Lymph % (Auto) Barry % (Auto) Eos % (Auto) Baso % (Auto) Neut # (Auto) PT INR APTT Sodium Potassium Chloride Carbon Dioxide BUN Creatinine Estimated GFR BUN/Creatinine Ratio Glucose Lactate Calcium Total Bilirubin AST ALT Alkaline Phosphatase Total Creatine Kinase 132 CK-MB (CK-2) 3.60 H CK-MB (CK-2) Rel Index 2.7 Troponin I 0.029 Total Protein Albumin Globulin Albumin/Globulin Ratio Lipase Nasal Screen MRSA (PCR) Negative for mrsa Ethyl Alcohol < 10 Ketones Blood Type Antibody Screen Assessment & Plan Plan: Assessment/Plan Narrative: Epigastric pain Unclear etiology. May be gastritis. Lipase level normal. Patient notes coffee-ground emesis in the past day or so. Could be Anabelle- Ascencio tear versus other etiology No history of endoscopy in the past. Will cover with IV Protonix as well as octreotide IV infusion Will obtain general surgeon consult Repeat labs in the morning. Monitor H&H Nausea and vomiting Antiemetic therapy to be provided. IV fluids Alcoholism with alcohol withdrawal syndrome CIWA Ativan protocol initiated 1-2 mg of Ativan IV to be provided based upon CIWA score between 8 and 20. Will consider phenobarbital if patient demonstrates a CIWA score 18-20 for more than 2-3 hours or CIWA score 21 or greater Dosing of the phenobarbital as normally 130-260 mg IV every 15-30 minutes as needed Note phenobarbital complements Ativan in terms of the mechanism to address alcohol withdrawal syndrome No Haldol since lowers seizure threshold Will check magnesium and follow Diabetes type 2 not on long-term insulin Will hold metformin Clear liquid diet to be provided as tolerated Insulin lispro sliding scale as needed Hypertension Continue home blood pressure meds as tolerated Time Spent With Patient Time with patient: Greater than 35 minutes (70 min)
[2018-04-14] MEDS: OCTREOTIDE 100 MCG/ML VIAL 50 MCG IV (14:35)
[2018-04-14] MEDS: NICOTINE 14 PATCH 14 MG TOP (14:35)
[2018-04-14] MEDS: OCTREOTIDE 500 MCG in SODIUM CHLORIDE 0.9% 100 ML 10.1 ML IV (14:43)
[2018-04-14] MEDS: LACTATED RINGERS 1,000 ML 100 ML IV (14:51)
--- NOTE | 2018-04-14 19:08 | PC.NURSE ---
maurisio note Pt c/o mild nausea, but asking for broth. Pt reported epigastric/chest pain immediately after drinking some broth. No emesis. Pain resolving with rest. Assisted pt up to bathroom after banana bag complete. Pt says she does not have urge to void, but willing to try. Pt voided 500 ml of dark jonathan urine.
--- NOTE | 2018-04-14 20:49 | PC.NURSE ---
Called pt's Stuart at [phone] and left message asking him to bring pt's Jardiance medication to hospital, as it is nonformulary.
[2018-04-15] VITALS (19 sets, daily range): BP systolic 125–190; BP diastolic 81–102; PULSE 63–89; RESP 13–20; TEMP 36.1–37.4; O2SAT 95–99
[2018-04-15] MEDS: OCTREOTIDE 500 MCG in SODIUM CHLORIDE 0.9% 100 ML 10.1 ML IV ×3 (00:19→20:06)
[2018-04-15] MEDS: LACTATED RINGERS 1,000 ML 100 ML IV ×3 (00:19→20:06)
[2018-04-15] MEDS: LORazepam 2 MG/ML SYRINGE 1 MG IV ×4 (02:14→20:06)
[2018-04-15 05:26] LABS: Add Manual Diff / Slide Review NO; Basophils Percent Auto 0.4 % (0-2); Eosinophils Percent Auto 3.3 % (2-4); Hematocrit 33.4 % (36-46); Hemoglobin 11.5 g/dL (12.0-16.0); Lymphocytes Percent Auto 26.5 % (25-40); Mean Corpuscular HGB Conc 34.4 % (30-36); Mean Corpuscular Hemoglobin 33.4 PG (26-34); Mean Corpuscular Volume 97.1 fL (80-100); Monocytes Percent Auto 7.7 % (3-14); Neutrophils Absolute Auto 3200 /uL (3000-5900); Neutrophils Percent Auto 62.1 % (50-75); Red Blood Cell Count 3.44 X10^6/uL (4.0-5.2); Red Cell Distribution Width 14.8 % (11.6-14.8); White Blood Cell Count 5.2 X10^3/uL (4.5-11.0)
[2018-04-15 05:32] LABS: Alanine Aminotransferase 96 IU/L (9-52); Albumin 3.3 g/dL (3.5-5.0); Albumin Globulin Ratio 1.6 (1.0-2.8); Alkaline Phosphatase 42 U/L (38-126); Aspartate Aminotransferase 114 IU/L (14-36); BUN Creatinine Ratio 22.9 (6-22); Bilirubin Total 0.9 mg/dL (0.2-1.3); Blood Urea Nitrogen 16 mg/dL (7-17); Calcium 8.5 mg/dL (8.4-10.2); Carbon Dioxide 26 mmol/L (22-32); Chloride 95 mmol/L (98-107); Estimated Glomerular Filt Rate > 60.0 mL/min (>60); Globulin 2.1 g/dL (1.7-4.1); Glucose 158 mg/dL (70-100); HEMOLYSIS < 15 (0-50); Potassium 3.9 mmol/L (3.4-5.1); Sodium 133 mmol/L (137-145); Total Protein 5.4 g/dL (6.3-8.2)
[2018-04-15 05:58] LABS: Platelet Count 99 X10^3/uL (150-400)
[2018-04-15] MEDS: glipiZIDE 5 MG TABLET 10 MG PO ×2 (07:54→21:50)
[2018-04-15] MEDS: NICOTINE 14 PATCH 14 MG TOP (07:55)
[2018-04-15] MEDS: PANTOPRAZOLE 40 MG VIAL IV ×2 (07:55→21:51)
[2018-04-15] MEDS: ALBUTEROL HFA 60 PUFF/8 GM INH INH (07:55)
[2018-04-15] MEDS: LISINOPRIL 20 MG TABLET PO (07:55)
[2018-04-15] MEDS: INSULIN ASPART 100 UNIT/ML INSULN PEN SUBCUT ×2 (07:55→12:51)
--- NOTE | 2018-04-15 11:35 | PT.IIE ---
Surgical History (Last Updated 04/14/18 @ 11:30 by Javy Wright, RN) Postsurgical arthrodesis status (Acute ~2008) Medical History (Last Updated 04/14/18 @ 11:30 by Javy Wright, ROSAS) Bunion, left (Acute) History of ectopic (Acute) Alcohol abuse (Acute) Asthma (Acute) Diabetes (Acute) Hypertension (Acute) Smoker (Acute) Physical Therapy Inpatient Evaluation/Re-Eval M1 PT/OT-IP Prior Functional Status Start: 04/15/18 12:22 Freq: Status: Active Protocol: Document 04/15/18 11:35 [facility] (Rec: 04/15/18 12:33 [facility] [id number]) Medical Review Prior Functional Status Medical History Reviewed Yes Mobility and Gait indep. community ambulator without device. Activities of Daily Living and IADL's indep. I/ADLs Social History Household Members spouse Living Arrangements House Number of Floors (Floors) One Floor Number of Stairs To Enter/Railing? 2 SE with rail Home Environment Standard Height Toilet Additional Social History Comment pt reportedly unable to take food by mouth over past 3 days with nausea, vomiting, epigastric pain; she stopped drinking alcohol over that time as well. M2 PT-IP Current Condition Start: 04/15/18 12:22 Freq: Status: Active Protocol: Document 04/15/18 11:35 RCC (Rec: 04/15/18 12:33 [facility] [id number]) Physical Therapy Current Condition Current Condition Evaluation Date 04/15/18 Treatment Diagnosis epigastric pain, N/V, gait disturbance M3 PT-IP Subjective Start: 04/15/18 12:22 Freq: Status: Active Protocol: Document 04/15/18 11:35 RCC (Rec: 04/15/18 12:33 [facility] [id number]) Subjective Physical Therapy Visit Type Type Initial Evaluation Visit Start Time 11:15 Visit Stop Time 11:35 Total Visit Minutes 20 Number of ON LINE CSR Visits 0 Physical Therapy Visit Comments Patient Comments pt states she is a little off with her walking; no concerns about mobility going home. M4 PT-IP Mobility and Gait Start: 04/15/18 12:22 Freq: Status: Active Protocol: Document 04/15/18 11:35 RCC (Rec: 04/15/18 12:33 [facility] [id number]) PT-Bed Mobility Assessment Supine to Sit Supine to Sit Independent Sit to Supine Sit to Supine Independent Scooting Scooting to Edge of Bed Independent Scooting Up and Down in Bed Independent PT-Transfer Assessment Sit to and From Stand Sit to and from Stand Standby Assistance Equipment Transfer Assistive Device Gait Belt Transfers Transfer Destination Bed Transfer Technique Stand Step Pivot Transfer Ability Level of Assist Standby Assistance Comments Mobility Comments slow paced transfer, mobility but no physical assistance required. Gait Assessment Gait Gait Assistance Required: Contact Guard Assist Distance (Feet) 100 Assistive Devices Assistive Device Gait Belt Gait Deviations General Gait Pattern Ataxic Factors Limiting Gait Function Factors Limiting Gait Function Decreased Activity Tolerance Decreased Strength Comments Gait Comments mild ataxia, no loss of balance but increased lateral sway. PT-Balance Assessment Sitting Balance and Reactions Static Sitting Balance Ability Good Dynamic Sitting Balance Ability Good Standing Balance and Reactions Static Standing Balance Ability Fair Dynamic Standing Balance Ability Fair Device Used none M5 PT-IP Objective Assessments Start: 04/15/18 12:22 Freq: Status: Active Protocol: Document 04/15/18 11:35 RCC (Rec: 04/15/18 12:33 [facility] [id number]) Orientation Orientation/Cognition Level of Alertness Alert Orientation Name Age Birthday Month Date Year Day of Week Place Situation Gross Range of Motion Lower Extremity ROM Assessment Within Functional Limits Coordination Assessment Assessment Foot Tapping Test Normal Performance M7 PT-IP Assessment and Plan Start: 04/15/18 12:22 Freq: Status: Active Protocol: Document 04/15/18 11:35 RCC (Rec: 04/15/18 12:33 [facility] [id number]) PT Summary Assessment and Plan Potential Rehabilitation Potential Good Status of Condition at Evaluation Evolving Summary Impairments Balance Gait Activity Tolerance Assessment Summary Pt demonstrates mild ataxia with gait, and impaired activity tolerance, but no outright loss of balance with gait. She did not require an assistive device, and expect that she will not need one upon d/c. Pt appears to be improved with mobility compared to initially presenting to the hospital, and verbalizes no concerns about return home when medically stable. Pt will be seen 1x/day to progress her gait tolerance and dynamic standing balance to improve safety. Expect pt to be able to d/c home when medically stable. Goals Gait Goal Independent Gait Distance 150 Other Goals up/down 2 steps with unilateral rail and CGA Days to Meet Goals 2 Frequency of Treatment Frequency Of Treatment Once a Day Treatment Plan Physical Therapy Treatment Plan Gait Training Therapeutic Exercise Balance Retraining Discharge Planning Recommendations To Nursing Amount of Assist Needed 1 Person Assist Discharge Recommendations PT Discharge Recommendations Home with Assistance
[2018-04-15] MEDS: ONDANSETRON 4 MG/2 ML INJ IV (13:19)
--- NOTE | 2018-04-15 13:49 | CM.DANOTE ---
Discharge Planning/Care Management CM Discharge Assessment Start: 04/15/18 13:42 Freq: Status: Active Protocol: Document 04/15/18 13:42 (Rec: 04/15/18 13:44 [id number]) Discharge Planning Assessment Assigned Engineer Internship MICHELLE Long Advance Directives? No History Provided By Patient Medical Record Has Patient been admitted in last 30 No days? Comment ER visit 02/09/2018 Prior Living Arrangements House Household Members spouse Type of transporation used prior to Drives own vehicle admit Independent with ADL's Yes Is patient alert and oriented? Yes Caregiver for Another No Patient/Family Preference Drug/Alcohol Rehab Barriers to Discharge No Discharge Plan Drug Rehabilitation Community Services Social Work Whiteboard Updated in Patient Room with Yes name and ext. # of Engineer Internship Review Status In Process Please Provide Date Initial DC 04/15/18 Assessment Was Performed Next Review Type Continued Stay Review Blister Packing Machine Tender Consult Start: 04/15/18 13:44 Freq: Status: Active Protocol: Document 04/15/18 13:44 (Rec: 04/15/18 13:49 [id number]) Blister Packing Machine Tender Consult OLIVE BRINE TESTER Assessment Type Substance Abuse Reason for OLIVE BRINE TESTER Referral Patient is a 58 years of age female with a long-standing history of alcohol abuse who notes she has been unable to drink alcohol or take food by mouth due to nausea vomiting and epigastric pain. Presenting Problem Alcohol abuse (Acute) Mental health diagnosis Depression treated in the past with either Zoloft or Wellbutrin [facility] check Yes: Detox 02/09/18-02/12/18 left AMA Suicidal thoughts No Past Suicidal thoughts No Current Suicidal thoughts No Prior Suicide attempts No Current plan for self harm No Access to guns and weapons No Thoughts of harm to others No Past thoughts of harm to others No Current thoughts of harming others No Prior attempts to harm others No Current plan to harm others No Current Risk factors Substance abuse Risk factor comments Patient reports to having a mother who drank all throughout her which patient states is the reason she started drinking around age 12-14. Relevant Medical History Alcoholism for many years since a teenager. Diabetes type 2 not on long- term insulin therapy Hypertension Depression treated in the past with either Zoloft or Wellbutrin Crisis Plan Patient is currently not medically stable for discharge . Discussed OP vs IP CD treatment and patient is unsure at this time. Patient states spouse would like patient to go to IP rehab but patient declines at this time. Patient is agreeble to AA. Action taken Admitted to hospital Additional Comment Patient is currently admitted IP due to Epigastric pain, Nausea and vomiting, Alcoholism with alcohol withdrawal syndrome, Diabetes type 2 not on long-term insulin, and Hypertension. Patients current CIWA is 3. Reviewed EMR: Patient is currently in CIWA protocol after presenting to ED with vomiting and shaking. Patient reported to ED staff that she had about 5-6 episodes of dark brown coffee-ground vomit ever since she quit drinking. Met with patient: patient reports to being in the hospital because i am a drunk. Patient stated she has been drinking since age 13-14 but claims it began because her mom severely drank during her . Patient denies any past MH needs/treatment. Patient drinks a pint a day and has not had a drink for 2 and half days because she wants to stop. Patient was last at ED on 02/09 which resulted in patient going to [facility] for detox from 02/09/18-02/12/18 with patient leaving AMA. Patient stated she has tried to quit multiple time since 15 and has made it to a year or sobriety in the past. Patient disclosed past CD [facility]T admissions in [facility] (possible ) for 21 days and in [facility] for roughly 60 days. Patient is unsure when these occurred but stated they were within the last decade. Patient also stated she as worked with [employer] in [place] on and off along with AA. Patient does not have a sponsor at this time but believes she can get one quickly. Patients last drink was on either 04/11-04/12. Patient is wanting to stop drinking but only wants to do AA at this time. She reports her wants her to go to IP and she was considering in until her the doctor said she might need surgery for an upper GI bleed? Patient stated she would talk to her about a possible IP CD admission but only if its under 21 days. SW stated that the facility would complete an assessment and provide timeline recommendations but ultimately as long as she is voluntary she would be in control. Patient was evaluated by PT due to limited mobility but is expected to discharge home when medically stable. Plan: SW should follow up with patient tomorrow to determine medical needs as well as determine if patient becomes open to IP or OP treatment. At this time, patient is planning on discharging home with AA.
--- NOTE | 2018-04-15 16:46 | P.PN_ITS ---
Subjective Date Patient Seen: 04/15/18 Time Patient Seen: 07:43 Interval history: History of present illness Follow-up on patient with epigastric pain and refractory nausea and vomiting warranted admission. Patient undergoing CIWA Ativan protocol for alcohol withdrawal syndrome Thus far patient is doing reasonably well. Her CIWA scores have been around 8- 10 and given 1 mg of IV Ativan with a repeat CIWA in 2 hr as ordered Review of systems Patient notes less nausea no vomiting since admitted epigastric pain seems to be of subsiding. No chest pain or shortness of breath Exam Vital Signs (past 8 hours): - 04/15/18 09:00 04/15/18 12:00 04/15/18 13:03 Temperature 98.7 F Pulse Rate 72 70 66 Respiratory Rate 16 15 19 Blood Pressure 138/90 149/92 H 162/94 H Pulse Oximetry 96 98 95 04/15/18 13:48 04/15/18 15:00 Temperature 96.9 F L Pulse Rate 65 78 Respiratory Rate 20 16 Blood Pressure 162/94 H 125/83 Pulse Oximetry 97 97 Fraction of Inspired Oxygen 21 Oxygen Delivery Method Room Air Oxygen Flow Rate 0 Narrative Exam Narrative: Patient awake and alert no apparent distress at rest Psychiatric well oriented to time place person mood is pleasant affect is appropriate Respiratory fairly clear to auscultation no wheezes no crackles good airflow Cardiovascular tachycardiac regular rhythm rate of about 100 per minute no murmurs noted +3 pulses GI no significant tenderness to palpation positive bowel sounds mild tenderness to epigastric area no bruits Neurologic no focal neurologic changes cranial nerves 2-12 grossly intact minimal tremor noted at rest Objective Labs Result Diagrams: 04/15/18 04:38 04/15/18 04:38 Labs: Laboratory Results - last 24 hr 04/15/18 04/15/18 04:38 04:38 WBC 5.2 RBC 3.44 L Hgb 11.5 L Hct 33.4 L MCV 97.1 MCH 33.4 MCHC 34.4 RDW 14.8 Plt Count 99 L Neut % (Auto) 62.1 D Lymph % (Auto) 26.5 [place] % (Auto) 7.7 Eos % (Auto) 3.3 Baso % (Auto) 0.4 Neut # (Auto) 3200 Sodium 133 L Potassium 3.9 Chloride 95 L Carbon Dioxide 26 BUN 16 Creatinine 0.70 Estimated GFR > 60.0 BUN/Creatinine Ratio 22.9 H Glucose 158 H Calcium 8.5 Total Bilirubin 0.9 AST 114 H ALT 96 H Alkaline Phosphatase 42 Total Protein 5.4 L Albumin 3.3 L Globulin 2.1 Albumin/Globulin Ratio 1.6 Assessment & Plan Plan: Assessment/Plan Narrative: Epigastric pain Unclear etiology. May be gastritis. Lipase level normal. Patient notes coffee-ground emesis in the past day or so. Could be Anabelle- Ascencio tear versus other etiology No history of endoscopy in the past. Will cover with IV Protonix as well as octreotide IV infusion Will obtain general surgeon consult Repeat labs in the morning. Monitor H&H Requested nursing to heme test all stool and test any emesis for blood. Thus far no stool output nor vomiting since admitted. Please note we have not established that patient did in fact have an upper GI bleed Nausea and vomiting Antiemetic therapy to be provided. IV fluids Alcoholism with alcohol withdrawal syndrome CIWA Ativan protocol initiated 1-2 mg of Ativan IV to be provided based upon CIWA score between 8 and 20. Will consider phenobarbital if patient demonstrates a CIWA score 18-20 for more than 2-3 hours or CIWA score 21 or greater Dosing of the phenobarbital as normally 130-260 mg IV every 15-30 minutes as needed Note phenobarbital complements Ativan mechanism to address alcohol withdrawal syndrome No Haldol since lowers seizure threshold Will check magnesium and and correct as indicated Diabetes type 2 not on long-term insulin Will hold metformin Clear liquid diet to be provided as tolerated initially and will advance to full liquid today April 15 Insulin lispro sliding scale as needed Hypertension Continue home blood pressure meds as tolerated Time Spent With Patient Time with patient: 25 - 35 minutes (30 min to see patient)
--- NOTE | 2018-04-15 21:05 | PC.NURSE ---
2000 - Pt sitting up in bed. Emesis back to face, dry heaves. No measurable emesis. CIWA 10, ativan given per orders. 2015 - Pt bed alarm sounding. Pt in the process of getting up around bed rail. States that she needs to use the bathroom. I think I have had enough fluids. SBA to bathroom. Reinforced safety and call light use. back in bed. Alarm on.
[2018-04-16] VITALS (9 sets, daily range): BP systolic 116–180; BP diastolic 67–105; PULSE 70–91; RESP 15–20; TEMP 36.5–37.3; O2SAT 95–97; BMI 17.6
[2018-04-16] MEDS: LORazepam 2 MG/ML SYRINGE 1 MG IV ×2 (00:24→05:09)
[2018-04-16] MEDS: LISINOPRIL 20 MG TABLET PO (05:01)
[2018-04-16 05:09] LABS: Add Manual Diff / Slide Review NO; Basophils Percent Auto 0.5 % (0-2); Eosinophils Percent Auto 2.3 % (2-4); Hematocrit 33.6 % (36-46); Hemoglobin 11.7 g/dL (12.0-16.0); Lymphocytes Percent Auto 32.9 % (25-40); Mean Corpuscular HGB Conc 34.8 % (30-36); Mean Corpuscular Hemoglobin 33.5 PG (26-34); Mean Corpuscular Volume 96.3 fL (80-100); Monocytes Percent Auto 7.8 % (3-14); Neutrophils Absolute Auto 2200 /uL (3000-5900); Neutrophils Percent Auto 56.5 % (50-75); Platelet Count 95 X10^3/uL (150-400); Red Blood Cell Count 3.49 X10^6/uL (4.0-5.2); Red Cell Distribution Width 14.6 % (11.6-14.8); White Blood Cell Count 3.9 X10^3/uL (4.5-11.0)
[2018-04-16 05:15] LABS: Alanine Aminotransferase 104 IU/L (9-52); Albumin 3.6 g/dL (3.5-5.0); Albumin Globulin Ratio 1.8 (1.0-2.8); Alkaline Phosphatase 46 U/L (38-126); Aspartate Aminotransferase 112 IU/L (14-36); Bilirubin Total 0.7 mg/dL (0.2-1.3); Blood Urea Nitrogen 7 mg/dL (7-17); Calcium 8.5 mg/dL (8.4-10.2); Carbon Dioxide 33 mmol/L (22-32); Chloride 91 mmol/L (98-107); Estimated Glomerular Filt Rate > 60.0 mL/min (>60); Glucose 170 mg/dL (70-100); HEMOLYSIS < 15 (0-50); Sodium 132 mmol/L (137-145); Total Protein 5.6 g/dL (6.3-8.2)
[2018-04-16] MEDS: LACTATED RINGERS 1,000 ML 100 ML IV (06:05)
[2018-04-16] MEDS: OCTREOTIDE 500 MCG in SODIUM CHLORIDE 0.9% 100 ML 10.1 ML IV (06:05)
--- NOTE | 2018-04-16 06:23 | PC.NURSE ---
This RN worked with Annie PILLAI and agree with her assessment findings, ordered interventions, and care of the patient.
[2018-04-16] MEDS: NICOTINE 14 PATCH 14 MG TOP (06:37)
[2018-04-16] MEDS: EMPAGLIFLOZIN 25 MG 25 EACH PO (07:54)
[2018-04-16] MEDS: PANTOPRAZOLE 40 MG VIAL IV (07:54)
[2018-04-16] MEDS: INSULIN ASPART 100 UNIT/ML INSULN PEN SUBCUT ×3 (07:54→19:14)
[2018-04-16] MEDS: glipiZIDE 5 MG TABLET 10 MG PO (07:54)
--- NOTE | 2018-04-16 09:50 | PT.IPTN ---
Physical Therapy Treatment Note M2 PT-IP Current Condition Start: 04/15/18 12:22 Freq: Status: Active Protocol: Document 04/15/18 11:35 RCC (Rec: 04/15/18 12:33 RCC [id number]) Physical Therapy Current Condition Current Condition Evaluation Date 04/15/18 Treatment Diagnosis epigastric pain, N/V, gait disturbance M3 PT-IP Subjective Start: 04/15/18 12:22 Freq: Status: Active Protocol: Document 04/16/18 09:36 LJ (Rec: 04/16/18 09:50 LJ [id number]) Subjective Physical Therapy Visit Type Type Treatment Note Visit Start Time 09:12 Visit Stop Time 09:37 Total Visit Minutes 25 Number of JIG AND FIXTURE REPAIRER Visits 1 Physical Therapy Visit Comments Patient Comments Pt in bathroom. willing to walk with therapist. M4 PT-IP Mobility and Gait Start: 04/15/18 12:22 Freq: Status: Active Protocol: Document 04/16/18 09:36 LJ (Rec: 04/16/18 09:50 LJ [id number]) PT-Bed Mobility Assessment Rolling Level of Assist Independent Supine to Sit Supine to Sit Independent Sit to Supine Sit to Supine Independent Scooting Scooting to Edge of Bed Independent PT-Transfer Assessment Sit to and From Stand Sit to and from Stand Independent Equipment Transfer Assistive Device Gait Belt Orthotic/Prosthetic Devices or Brace: No Transfers Transfer Destination Bed Transfer Technique Stand Step Pivot Transfer Ability Level of Assist Standby Assistance Comments Mobility Comments Pt independent with all bed mobility and transfers. Responds appropriately to cues . Gait Assessment Gait Gait Assistance Required: Standby Assistance Able to Maintain Weight Bearing Status Yes During Gait Assistive Devices Assistive Device Gait Belt Orthotic/Prosthetic Devices or Brace: No Gait Deviations General Gait Pattern Antalgic Decreased Feet Clearance Factors Limiting Gait Function Factors Limiting Gait Function Incoordination Poor Balance Comments Gait Comments Pt experienced several slight LOB while ambulating in hallway 50'. Required rest to lean on wall to regain balance . Pt unsafe to ambulate in short unsupervised. M5 PT-IP Objective Assessments Start: 04/15/18 12:22 Freq: Status: Active Protocol: Document 04/15/18 11:35 RCC (Rec: 04/15/18 12:33 RCC [id number]) Orientation Orientation/Cognition Level of Alertness Alert Orientation Name Age Birthday Month Date Year Day of Week Place Situation Gross Range of Motion Lower Extremity ROM Assessment Within Functional Limits Coordination Assessment Assessment Foot Tapping Test Normal Performance M6 PT-IP Treatment Start: 04/15/18 12:22 Freq: Status: Active Protocol: Document 04/16/18 09:36 JOSEPH (Rec: 04/16/18 09:50 [id number]) Physical Therapy Treatment Exercises Exercises Ankle Pumps Gluteal Sets Quad Sets Heel Slides Straight Leg Raises Education Education Provided Safety M7 PT-IP Assessment and Plan Start: 04/15/18 12:22 Freq: Status: Active Protocol: Document 04/16/18 09:36 JOSEPH (Rec: 04/16/18 09:50 [id number]) PT Summary Assessment and Plan Potential Rehabilitation Potential Good Summary Impairments Balance Gait Assessment Summary Pt given exercises to perform while in bed. Required CGA for ambulation in short and room into and out of bed. Somewhat impulsive with IV pole following. C/o dizziness after several steps out of the rooom. Returned to room after 50' ambulation and 1 rest break d/t dizziness. Performed 10 min exercises in bed. Frequency of Treatment Frequency Of Treatment Once a Day Treatment Plan Physical Therapy Treatment Plan Gait Training Therapeutic Exercise Balance Retraining Recommendations To Nursing Amount of Assist Needed 1 Person Assist Discharge Recommendations PT Discharge Recommendations Home with Assistance
--- NOTE | 2018-04-16 12:00 | PM.PN.1 ---
Subjective Date Patient Seen: 04/16/18 Interval history: Chart reviewed, patient seen and examined. She is sleepy but arousable. She reports nausea and vomiting prior to admission but none since admission. No hemetemesis, no bm here. mild tremor, but no overt hallucinations. Exam Vital Signs (past 8 hours): - 04/16/18 05:00 04/16/18 05:01 04/16/18 07:52 Temperature 98.2 F 99.2 F Pulse Rate 76 74 72 Respiratory Rate 15 19 Blood Pressure 173/105 H 173/105 H 174/86 H Pulse Oximetry 96 97 Fraction of Inspired Oxygen 21 Oxygen Delivery Method Room Air Oxygen Flow Rate 0 Narrative Exam Narrative: Pleasant female, sleepy but in no acute distress Mild tremor/asterixis with out stretched hand Lungs: Clear to auscultation CV: RRR nl Sl S2 2/6 MEREDITH Abd: soft/ non tender/ non distended Ext: no edema Objective Labs Result Diagrams: 04/16/18 04:39 04/16/18 04:39 Labs: Laboratory Results - last 24 hr 04/16/18 04/16/18 04:39 04:39 WBC 3.9 L RBC 3.49 L Hgb 11.7 L Hct 33.6 L MCV 96.3 MCH 33.5 MCHC 34.8 RDW 14.6 Plt Count 95 L Neut % (Auto) 56.5 Lymph % (Auto) 32.9 [place] % (Auto) 7.8 Eos % (Auto) 2.3 Baso % (Auto) 0.5 Neut # (Auto) 2200 L Sodium 132 L Potassium 3.0 L Chloride 91 L Carbon Dioxide 33 H BUN 7 Creatinine 0.50 L Estimated GFR > 60.0 BUN/Creatinine Ratio 14.0 Glucose 170 H Calcium 8.5 Total Bilirubin 0.7 AST 112 H ALT 104 H Alkaline Phosphatase 46 Total Protein 5.6 L Albumin 3.6 Globulin 2.0 Albumin/Globulin Ratio 1.8 Assessment & Plan (1) Hypokalemia: Problem details: will replace Current visit: Yes Status: Acute (2) Alcoholic ketoacidosis: Problem details: Improving Current visit: Yes Status: Acute (3) Acute upper GI bleed: Problem details: NO evidence of bleeding at this time. Will change protonix to oral. D/C octreotide, continue to follow Hematocrit Current visit: Yes Status: Acute (4) Alcohol withdrawal delirium: Problem details: continue CIWA protocol with Ativan as needed prn Patient wants to go to outpatient treatment with AA at discharge Current visit: Yes Status: Acute
[2018-04-16] MEDS: POTASSIUM CHLORIDE 20 MEQ/15 ML UDC 40 MEQ PO (13:37)
--- NOTE | 2018-04-16 13:47 | PC.NURSE ---
Addendum entered by Javy Wright R.N. 04/16/18 14:01: Pt was given prune juice for c/o constipation. She is passing flatus. No BM as of yet, will monitor. Original Note: Pt has been awake, alert and oriented x3 with minimal CIWA scores not requiring ativan. Impulsive behavior and frequently attempts to get OOB without assistance. Educated to high fall risk and use of call light. Pt agrees to use call light before getting OOB. Bed alarm on, yellow gown, yellow socks and call light in reach. Will monitor.
--- NOTE | 2018-04-16 15:08 | CM.DPC ---
DCP continued: Received request from RN and patient for AUTOMATIC COIN MACHINE MECHANIC visit. Attempted to meet patient this AM but she was asleep at time of visit. Therefore, met patient this afternoon explained AUTOMATIC COIN MACHINE MECHANIC role. Patient alert and oriented sitting up in bed at time of visit. Patient reports long h/o alcoholism (see assessment for details). Patient interested in treatment but reports that she does not want to go inpatient. Initially patient planned to d/c home with support from [facility].A. Patient has now reconsidered and reports that she would also like to consider outpatient dual diagnosis treatment. AUTOMATIC COIN MACHINE MECHANIC provided patient with numerous resources for both inpatient and outpatient services. Patient interested in [facility] in [place]. Encouraged patient to call and check to see if they take appointments vs. walk in. Patient agreeable. During visit, patient's spouse/Stuart entered the room. Patient in agreement for him to be in room for continued discussion about treatment options. Spouse feels strongly that patient should be inpatient for treatment. Spouse adamantly refuses. Patient has been to both [facility] and [facility] in the past and has no desire to return. Encouraged patient and spouse to discuss amongst themselves. Resources left. Patient has number to [facility], [facility], and [facility]. Patient also provided with resources for [facility] and [facility]. P: Anticipate home when medically stable. Resources have been provided for mental health/alcohol treatment as outpatient and inpatient. RN updated. MICHELLE Dumont
--- NOTE | 2018-04-16 19:40 | PC.NURSE ---
maurisio note pt ambulating with steady gait in room with SBA. Pt eating 100% meals. Pt asked for Ativan, but CIWA score only 5. Explained that pt does not meet criteria for Ativan at this time (which is good). Pt asked if she could go outside to smoke, thinks her nicotine patch fell off, feeling strong cravings for smoking. Nicotine patch still on left scapula, but edges peeling up. Secured patch with tape. Ambulated with pt to [employer] machine per her request, says she wants potato chips.
[2018-04-16] MEDS: SODIUM CHLORIDE 0.9% FLUSH 10 ML IV (22:54)
[2018-04-17 00:04] VITALS: BP 138/101; PULSE 73; RESP 19; TEMP 37.4; O2SAT 93
[2018-04-17] MEDS: ALBUTEROL HFA 60 PUFF/8 GM INH INH (00:35)
[2018-04-17] MEDS: INSULIN ASPART 100 UNIT/ML INSULN PEN SUBCUT (00:36)
[2018-04-17 05:07] LABS: Add Manual Diff / Slide Review NO; Basophils Percent Auto 0.5 % (0-2); Eosinophils Percent Auto 2.9 % (2-4); Hematocrit 35.1 % (36-46); Hemoglobin 11.8 g/dL (12.0-16.0); Mean Corpuscular HGB Conc 33.6 % (30-36); Mean Corpuscular Hemoglobin 32.6 PG (26-34); Mean Corpuscular Volume 97.2 fL (80-100); Monocytes Percent Auto 9.6 % (3-14); Neutrophils Absolute Auto 2200 /uL (3000-5900); Platelet Count 109 X10^3/uL (150-400); Red Blood Cell Count 3.61 X10^6/uL (4.0-5.2); Red Cell Distribution Width 14.8 % (11.6-14.8); White Blood Cell Count 4.2 X10^3/uL (4.5-11.0)
[2018-04-17 05:11] LABS: Alanine Aminotransferase 103 IU/L (9-52); Albumin 3.6 g/dL (3.5-5.0); Albumin Globulin Ratio 1.6 (1.0-2.8); Alkaline Phosphatase 63 U/L (38-126); Aspartate Aminotransferase 89 IU/L (14-36); BUN Creatinine Ratio 13.3 (6-22); Bilirubin Total 0.5 mg/dL (0.2-1.3); Blood Urea Nitrogen 8 mg/dL (7-17); Calcium 9.1 mg/dL (8.4-10.2); Carbon Dioxide 36 mmol/L (22-32); Chloride 92 mmol/L (98-107); Estimated Glomerular Filt Rate > 60.0 mL/min (>60); Globulin 2.2 g/dL (1.7-4.1); Glucose 95 mg/dL (70-100); HEMOLYSIS < 15 (0-50); Potassium 3.4 mmol/L (3.4-5.1); Sodium 135 mmol/L (137-145); Total Protein 5.8 g/dL (6.3-8.2)
[2018-04-17] MEDS: PANTOPRAZOLE 40 MG TABLET PO (06:10)
[2018-04-17 06:11] VITALS: BP 157/94; PULSE 56; RESP 18; TEMP 36.6; O2SAT 98
--- NOTE | 2018-04-17 06:21 | PC.NURSE ---
Worked with Annie PLILAI, I agree with her assessment findings, ordered interventions, and care of this patient.
[2018-04-17 07:55] VITALS: BP 144/98; PULSE 65; RESP 18; TEMP 36.7; O2SAT 97
[2018-04-17 08:47] VITALS: BP 144/98; PULSE 73
[2018-04-17] MEDS: EMPAGLIFLOZIN 25 MG 25 EACH PO (08:47)
[2018-04-17] MEDS: LISINOPRIL 20 MG TABLET PO (08:47)
[2018-04-17] MEDS: NICOTINE 14 PATCH 14 MG TOP (08:48)
[2018-04-17] MEDS: SODIUM CHLORIDE 0.9% FLUSH 10 ML IV (08:49)
--- NOTE | 2018-04-17 11:10 | PM.DS.1 ---
History of Present Illness Date Patient Seen: 04/17/18 Chief complaint: needs to detox Narrative: Patient is a 58 years of age female with a long-standing history of alcohol abuse who notes she has been unable to drink alcohol or take food by mouth due to nausea vomiting and epigastric pain. Patient notes no prior history of pancreatitis. No history of GI bleeding and peptic ulcer disease. Patient notes she gave her her car keys about 4-5 days ago so that she could not elect to drive to [facility] to buy [employer] since the [facility] is about 8 miles from her home. Patient notes the nausea and vomiting started about 3 days ago. The epigastric pain started about 3 days ago. No associated shaking chills no cough. No neck pain no stiff neck stiffness. No headache complaint. No chest pain or shortness of breath Discharge Providers Date of admission: 04/14/18 09:28 Primary care physician: Edgardo Plunkett DO Consults: 04/14/18 11:25 Consult to Dietitian, Adult Routine Comment: Reason For Exam: assessed at risk 04/14/18 20:31 Consult to Discharge Planning Routine Comment: pt interested in ETOH rehab 04/15/18 02:20 Consult to Physical Therapy Evaluate & Treat Comment: Physician Instructions: Evaluate and Treat Discharge provider: Yolie Rao MD Discharge Date: 04/17/18 Summary Discharge Diagnosis: Alcoholism Alcohol withdrawal Delerium Tremens Type 2 Diabetes Probable Gastritis hypertension History of pancreatitis Hospital Course: Patient was admitted to the hospital to detox from alcohol. She had a reported history of nausea, vomiting, and hemetemsis. She had no vomiting or hemetemsis in the hospital. She was initially placed on octreotide as well as ativan for her alcohol withdrawal. Her nausea improved, her CIWA scores improved and she was able to advance her diet without difficulty. The patient was evaluated by our social media intern who gave her and her many referrals for outpatient treatment. The patient is awake today and ready for discharge home. She ate breakfast without difficulty, she reports mild abdominal discomfort but no vomiting. Patient will be discharged home with plans to follow up with her PCP within one week. Status at Discharge Functional status at discharge: independent ambulation Overall status at discharge: patient is back to baseline Time Spent with Patient Less than 30 minutes Exam Vital Signs (past 8 hours): - 04/17/18 06:11 04/17/18 07:55 04/17/18 08:47 Temperature 98 F 98.1 F Pulse Rate 56 L 65 73 Respiratory Rate 18 18 Blood Pressure 157/94 H 144/98 H 144/98 H Pulse Oximetry 98 97 Fraction of Inspired Oxygen 21 Oxygen Delivery Method Room Air Oxygen Flow Rate 0 Narrative Exam Narrative: pleasant female in no acute distress Lungs: clear to auscultation CV: RRR nl S1S2 Abd: soft/ non tender/ non distended Ext: no edema Objective Labs Result Diagrams: 04/17/18 04:41 04/17/18 04:41 Labs: Laboratory Results - last 24 hr 04/17/18 04/17/18 04:41 04:41 WBC 4.2 L RBC 3.61 L Hgb 11.8 L Hct 35.1 L MCV 97.2 MCH 32.6 MCHC 33.6 RDW 14.8 Plt Count 109 L Neut % (Auto) 53.0 Lymph % (Auto) 34.0 [place] % (Auto) 9.6 Eos % (Auto) 2.9 Baso % (Auto) 0.5 Neut # (Auto) 2200 L Sodium 135 L Potassium 3.4 Chloride 92 L Carbon Dioxide 36 H BUN 8 Creatinine 0.60 Estimated GFR > 60.0 BUN/Creatinine Ratio 13.3 Glucose 95 Calcium 9.1 Total Bilirubin 0.5 AST 89 H ALT 103 H Alkaline Phosphatase 63 Total Protein 5.8 L Albumin 3.6 Globulin 2.2 Albumin/Globulin Ratio 1.6 Discharge Plan Discharge Plan Discharge Problem: Alcoholic ketoacidosis, Acute upper GI bleed Patient Disposition: Home Discharge Med Rec/Prescriptions Prescriptions: New pantoprazole 40 mg Tablet,Delayed Release (Dr/Ec) 40 mg PO 0700 Qty: 30 RF: 0 Continue lisinopril 20 mg tablet 20 mg PO DAILY RF: 0 glipizide 10 mg tablet 10 mg PO BID RF: 0 metformin 1,000 mg tablet 1,000 mg PO BID RF: 0 albuterol sulfate [ProAir HFA] 90 mcg/actuation HFA aerosol inhaler 2 dose Inhalation Q4-6H PRN (Reason: Wheezing) RF: 0 empagliflozin [Jardiance] 25 mg tablet 12.5 mg PO DAILY RF: 0 Follow up/Referrals: Edgardo Plunkett DO [Primary Care Provider] - (Follow up in one week for evaluation) Provider Discharge Instructions Diet: Diet as Tolerated Activity: activity as tolerated Discharge Data Primary Care Provider: Edgardo Plunkett Attending Provider: Rip Butts Admmainor Date/Time: 04/14/18 09:28
--- NOTE | 2018-04-17 11:15 | PT.IPTN ---
Current Diagnoses Acidosis (04/14/18) Hypokalemia (04/14/18) Alcohol dependence with withdrawal delirium (04/14/18) Gastrointestinal hemorrhage, unspecified (04/14/18) Physical Therapy Treatment Note M2 PT-IP Current Condition Start: 04/15/18 12:22 Freq: Status: Active Protocol: Document 04/15/18 11:35 RCC (Rec: 04/15/18 12:33 RCC [id number]) Physical Therapy Current Condition Current Condition Evaluation Date 04/15/18 Treatment Diagnosis epigastric pain, N/V, gait disturbance M3 PT-IP Subjective Start: 04/15/18 12:22 Freq: Status: Active Protocol: Document 04/17/18 11:15 AB (Rec: 04/17/18 12:34 AB [id number]) Subjective Physical Therapy Visit Type Type Treatment Note Visit Start Time 11:15 Visit Stop Time 11:25 Total Visit Minutes 10 Number of TREE MARKER Visits 0 Physical Therapy Visit Comments Patient Comments pt agreeable to do PT Therapy Pain Assessment Pain When Pain Assessed At Rest Pain Present Pain Present Pain Reported Location Abdomen Intensity 5 Scale Used Numeric (1 - 10) M4 PT-IP Mobility and Gait Start: 04/15/18 12:22 Freq: Status: Active Protocol: Document 04/17/18 11:15 AB (Rec: 04/17/18 12:34 AB [id number]) PT-Transfer Assessment Sit to and From Stand Sit to and from Stand Standby Assistance Gait Assessment Gait Gait Assistance Required: Standby Assistance Distance (Feet) 75 Able to Maintain Weight Bearing Status Yes During Gait Assistive Devices Assistive Device Gait Belt Gait Deviations General Gait Pattern Antalgic Decreased Stride Length Decreased Feet Clearance Factors Limiting Gait Function Factors Limiting Gait Function Decreased Activity Tolerance Decreased Strength Pain Poor Balance Poor Safety Awareness Stair Climbing Assessment Evaluation Level of Assist On Stairs Standby Assistance Devices Stair Climbing Assistive Devices Left Railing Technique/Endurance Stair Climbing Direction Ascend and Descend Stair Climbing Technique Step to Step Number of Steps Climbed 1 Query Text: Stair Climbing Set # Repetitions (reps) 2 Comments Stair Climbing Comments pt completed up/down step with L handle to simulate 2 steps to get into the house. pt ccompleted requiring SBA PT-Balance Assessment Comments Other Balance Tests/Deviations/Treatment Tinetti balance assessmen: : balance score 14/16 gait score 11/12 total score of 25/28 which relates to low fall risk M5 PT-IP Objective Assessments Start: 04/15/18 12:22 Freq: Status: Active Protocol: Document 04/15/18 11:35 RCC (Rec: 04/15/18 12:33 RCC [id number]) Orientation Orientation/Cognition Level of Alertness Alert Orientation Name Age Birthday Month Date Year Day of Week Place Situation Gross Range of Motion Lower Extremity ROM Assessment Within Functional Limits Coordination Assessment Assessment Foot Tapping Test Normal Performance M6 PT-IP Treatment Start: 04/15/18 12:22 Freq: Status: Active Protocol: Document 04/16/18 09:36 LJ (Rec: 04/16/18 09:50 LJ [id number]) Physical Therapy Treatment Exercises Exercises Ankle Pumps Gluteal Sets Quad Sets Heel Slides Straight Leg Raises Education Education Provided Safety M7 PT-IP Assessment and Plan Start: 04/15/18 12:22 Freq: Status: Active Protocol: Document 04/17/18 11:15 AB (Rec: 04/17/18 12:34 AB [id number]) PT Summary Assessment and Plan Potential Rehabilitation Potential Fair Summary Impairments Pain ROM Strength Balance Cognition Bed Mobility Transfers Gait Activity Tolerance Progress Towards Goals Progressing Toward Goals Assessment Summary pt requiring SBA with mobility and plans to go home with spouse to assist her. pt may go home when medically stable Goals Gait Goal Independent Gait Distance 150 Other Goals up/down 2 steps with unilateral rail and CGA Days to Meet Goals 2 Frequency of Treatment Frequency Of Treatment Once a Day Treatment Plan Physical Therapy Treatment Plan Gait Training Therapeutic Exercise Balance Retraining Recommendations To Nursing Amount of Assist Needed 1 Person Assist Discharge Recommendations PT Discharge Recommendations Home with Assistance
--- NOTE | 2018-04-17 12:48 | PC.NURSE ---
Dishcharge Note: Pt given discharge teaching instructing pt about s and s of stroke, discussed pt's plan's to discontinue alcohol use, including local AA meetings and rehab services through [facility]. Pt also given encouragement to discontinue smoking if able, and reminded that she still has nicotine patch in place as she is leaving hospital, and not to smoke with nicotine patch in place. Pt also given discharge instructions about home medications. Pt indicates understanding, is independent with mobility, alert and oriented. Discharged to ER entrance with MEND WORKER without incident.
== END 2018-04-17 12:48 | disposition home or self-care (01) | DRG 253 ==
LOC: ED 09:22 → AC 09:31 → ICU 10:46
PROVIDERS: Admitting Provider Internal Medicine; Emergency Provider Emergency Medicine; PCP Family Medicine; Visit Provider Internal Medicine
DX: K92.0 Hematemesis (principal); F10.231 Alcohol dependence with withdrawal delirium; E87.6 Hypokalemia; R10.13 Epigastric pain; E87.2 Acidosis; Z68.1 Body mass index [BMI] 19.9 or less, adult; Z79.4 Long term (current) use of insulin; E43 Unspecified severe protein-calorie malnutrition; I10 Essential (primary) hypertension; E11.9 Type 2 diabetes mellitus without complications; F17.210 Nicotine dependence, cigarettes, uncomplicated; K29.71 Gastritis, unspecified, with bleeding
CPT/HCPCS: 36415; 36591; 80053; 80320; 82009; 82550; 82553; 82962; 83605; 83690; 84484; 85025; 85610; 85730; 86850; 86900; 86901; 87797; 93005; 93041; 94640; 94762; 96361; 96365; 96367; 96375; 97110; 97116; 97162; 99285; 99406; C9113; J2060; J2354; J2405; J3475

== ENCOUNTER → 2019-01-09 16:35 | Outpatient (CLI) | payer OTHER, MEDICAID, SELFPAY ==
[2018-09-10 15:08] VITALS: BMI 17.7
--- NOTE | 2019-01-09 16:37 | DI.MRI.S_ITS ---
PROCEDURE: MR CERVICAL SPINE WO CON INDICATIONS: Pain on left side of CSpine; cervical spondylosis TECHNIQUE: Noncontrast sagittal T1 spin echo and T2 fast spin echo, sagittal STIR, foraminal oblique sagittal T2 fast spin echo, and axial gradient echo or T2 fast spin echo through the cervical spine. COMPARISON: [facility], RG, XR C-SPINE 2-3V, 10/25/2018, 8:14. FINDINGS: Image quality: Excellent. Alignment and Curvature: There is straightening and reversal of normal cervical curvature with apex at C5-6. There is trace anterolisthesis of C2 on C3, C7 on T1, T1 on T2, trace retrolisthesis of C5 on C6, C6 on C7. Bone Marrow: Marrow demonstrates normal overall signal. Spinal Cord: Visualized spinal cord has normal size and signal. No cerebellar tonsillar herniation. Paraspinous Soft Tissues: No paravertebral masses. Prevertebral soft tissues are normal in thickness. Discs: Moderate to severe desiccation is present throughout the cervical spine most severe at C5-6 and C6-7. C2-C3: Mild disc bulge with spinal stenosis. No foraminal narrowing. Uncovertebral hypertrophy is present. C3-C4: Mild disc bulge with minimal to mild canal narrowing. Moderate left and mild right foraminal narrowing with uncovertebral hypertrophy. C4-C5: Mild disc bulge with mild to moderate spinal stenosis. Mild to moderate left and minimal right foraminal narrowing with uncovertebral hypertrophy. C5-C6: Mild disc bulge with severe spinal stenosis. Severe right and [id number] left foraminal narrowing with uncovertebral hypertrophy. C6-C7: Mild disc bulge with severe spinal stenosis. Severe bilateral foraminal narrowing with uncovertebral hypertrophy. C7-T1: Mild disc bulge with mild spinal stenosis. Moderate left and mild right foraminal narrowing. IMPRESSION: 1. Multiple disc bulges. 2. Severe spinal stenosis at C5-6 and C6-7 secondary to disc bulge with contributing effect of reversal cervical curvature. 3. Multilevel severe foraminal narrowing noted at C5-6, C6-7 predominantly secondary to uncovertebral arthropathy. Dictated by: Mary Mario M.D. on 01/11/2019 at 7:55 Approved by: Mary Mario M.D. on 01/11/2019 at 8:00
== END ==
PROVIDERS: PCP Family Medicine; Visit Provider Physical Medicine & Rehabilitation
DX: M47.22 Other spondylosis with radiculopathy, cervical region (principal); M48.02 Spinal stenosis, cervical region; M50.11 Cervical disc disorder with radiculopathy, high cervical region
CPT/HCPCS: 72141

== ENCOUNTER 2019-03-05 08:41 | Outpatient (CLI) | payer OTHER, MEDICAID, SELFPAY ==
[2018-09-10 15:08] VITALS: BMI 17.7
[2019-03-05] VITALS (8 sets, daily range): BP systolic 91–149; BP diastolic 51–96; PULSE 77–118; RESP 16–110; TEMP 36.9; O2SAT 95–99
--- NOTE | 2019-03-05 08:43 | DI.RAD.S_ITS ---
PROCEDURE: PAIN C/T FACET INJ/BLK 1ST L INDICATIONS: SPONDYLOSIS FINDINGS: Fluoroscopic spot filming was performed to verify placement of spinal needles at the left C5-6 and C6-7 level(s), as labeled on the films. Appropriate location(s) of the needle tip(s) was confirmed by injection of iodinated contrast. IMPRESSION: Fluoroscopy guidance was provided intraoperatively for left-sided lower cervical spine facet joint injection. Dictated by: Eric Peña M.D. on 03/05/2019 at 12:39 Approved by: Eric Peña M.D. on 03/05/2019 at 12:44
--- NOTE | 2019-03-05 09:47 | P.PCN_ITS ---
Procedures Date/Time Date of procedure: 03/05/19 Time of procedure: 09:45 General Procedure description: PREOP DIAGNOSIS 1. FACET ARTHROPATHY 2. AXIAL NECK PAIN POST OP DIAGNOSIS 1. FACET ARTHROPATHY 2. AXIAL NECK PAIN PROCEDURES 1. FLUOROSCOPICALLY GUIDED, CONTRAST-CONTROLLED LEFT C5/6 AND C6/7 FACET JOINT INJECTIONS WITH CONSCIOUS SEDATION. PHYSICIAN: Javi Jenkins, DO INDICATIONS Mable is referred by Dr. Plunkett for treatment of Axial Neck Pain DESCRIPTION OF PROCEDURE Fluoroscopically guided, contrast-controlled left C5/6 and C6/7 facet joint injections with conscious sedation. Following review of allergy and review of potential side effects and complications, including, but not necessarily limited to, infection, allergic reaction, local tissue breakdown, stroke, temporary or permanent nerve injury and paralysis, the patient indicated that the patient understood and agreed to proceed. An informed consent document was signed by the patient, witnessed by a nurse, and placed in the patient's chart. Additionally, other treatment options including medications, modalities, and physical therapy were reviewed with the patient. After review of previous anaesthesic history and IV conscious sedation the pat ient was deemed safe to proceed with todays procedure with IV conscious sedation as ASA class II designation. Safety time-out was performed to confirm patient ID, procedure to be performed and site of procedure. IV sedation was accomplished with a combination of 4mg of Versed and 50mcg of Fentanyl was administered by the RN after DO order, titrated to patient comfort during the course of the procedure while the patient remained responsive to all verbal commands In the prone position, following sterile prep and drape of the cervical spine region, the posterior aspect of the left C5/6 and C6/7 facet joints were identified fluoroscopically. The skin was anesthetized via a 25-gauge 1.5-inch needle with 1% lidocaine solution into the corresponding facet joints. At this point, a 25-gauge 2.5-inch spinal needle was atraumatically introduced and advanced under fluoroscopic guidance into the corresponding facet joints. Following negative aspiration, injections of approximately 0.2-cc of Isovue 200 confirmed interarticular placement without vascular uptake. At this point, a total of 1cc including 0.5cc or 5 mg of dexamethasone combined with 0.5cc of 1% lidocaine solution was injected without complication into each of the corresponding facet joints. The procedure tolerated the procedure well without signs or symptoms of complications prior to transfer to the recovery area continued monitoring without incident. The patient was then transferred to the recovery area where they were observed for an appropriate period of time after the injection. The patient reported a VAS score of 7 prior to the procedure and a post- procedure VAS of 0. Total Fluoroscopy Time: 20.5 seconds Total Conscious Sedation Time: 24 min POST OP INSTRUCTIONS They were provided a Pain Log to continue to record their response to the target-specific procedure prior to their follow-up visit with their referring physician. Additionally, specific post-injection care instructions and a cont act number to our office were provided if concerns arise regarding possible complications associated with the procedure are suspected. Javi Jenkins, Complications: none
[2019-03-05] MEDS: MIDAZOLAM 5 MG/5 ML VIAL IV (09:54)
[2019-03-05] MEDS: fentaNYL 100 MCG/2 ML INJ 50 MCG IV (09:55)
--- NOTE | 2019-03-05 09:58 | PC.NURSE ---
MD AWARE OF TACHYCARDIA PRIOR TO BEGINNING OF PROCEDURE.
[2019-03-05] MEDS: IOPAMIDOL 15 ML VIAL 3 ML INJ (10:04)
[2019-03-05] MEDS: DEXAMETHASONE 10 MG/ML VIAL 20 MG INJ (10:05)
[2019-03-05] MEDS: BUPIVACAINE 0.5% (PF) VIAL 2 ML INJ (10:05)
--- NOTE | 2019-03-05 10:07 | PC.NURSE ---
ASSISTING PT TO POST PROC AREA IN STABLE CONDITION
--- NOTE | 2019-03-05 10:15 | PC.NURSE ---
Pt returned from procedure via wheelchair awake and alert, she was able to move from the w/c to chair with standby assist. Resumed monitoring from Emily PILLAI.
== END 2019-03-05 10:42 ==
PROVIDERS: PCP Family Medicine; Visit Provider Physical Medicine & Rehabilitation
DX: M47.22 Other spondylosis with radiculopathy, cervical region (principal)
CPT/HCPCS: 64490; 64491; 99152; J1100; J2250; J3010

== ENCOUNTER 2020-12-29 17:13 | Emergency (ER) | payer OTHER, MEDICAID, SELFPAY ==
[2018-09-10 15:08] VITALS: BMI 17.7
--- NOTE | 2020-12-29 17:45 | ED.GENADULT ---
HPI - General Adult <Gio Childress MD - Last Filed: 01/08/21 01:28> General Chief complaint: Toxicology Problem Stated complaint: Intoxication Time Seen by Provider: 12/29/20 17:40 Source: patient and other Mode of arrival: Wheelchair History of Present Illness HPI narrative: Patient here for possible alcohol intoxication. Was dropped off by private vehicle. Patient able to answer questions but is very somnolent. Denies any chest pain abdominal pain back pain. Denies any drug use. No falls or injuries. No nausea vomiting. History otherwise limited due to patient falls asleep. Patient denies any trouble breathing. No cough cold congestion or fever. No problems urinating. Patient denies any trauma. Denies anyone hurting her Related Data Home Medications Medication Instructions Recorded Confirmed albuterol sulfate 90 mcg/actuation 2 dose INHALATION Q4-6H PRN 12/30/17 03/20/19 aerosol inhaler glipizide 10 mg tablet 10 mg PO BID 12/30/17 03/20/19 lisinopril 20 mg tablet 20 mg PO DAILY 12/30/17 03/20/19 metformin 1,000 mg tablet 500 mg PO BID tab 12/12/18 03/20/19 methocarbamol 500 mg tablet 500 mg PO Q6H PRN tab 12/12/18 03/20/19 Previous Rx's Medication Instructions Recorded celecoxib 200 mg capsule (Celebrex) 200 mg PO DAILY #30 cap 03/20/19 lidocaine 5 % topical patch 1 patch TOP DAILY #30 each MDD 12 03/20/19 hours in a 24 hour period chlordiazepoxide HCl 25 mg capsule See Rx Instructions .ROUTE 12/29/20 .COMPLEX PRN #32 cap Allergies Allergy/AdvReac Type Severity Reaction Status Date / Time No Known Drug Allergies Allergy Verified 03/20/19 08:11 Review of Systems <Gio Childress MD - Last Filed: 01/08/21 01:28> Review of Systems Narrative: GENERAL: Denies chills, fatigue, malaise, fever, sweats. HEENT: Denies sinus pain, ear pain, sore throat RESPIRATORY: Denies dyspnea, cough CARDIOVASCULAR: Denies chest pain, palpitations GASTROINTESTINAL: Denies nausea, vomiting, abdominal pain : Denies dysuria, frequency, hematuria MUSCULOSKELETAL: denies muscle or bony pain NEUROLOGIC: Denies weakness, numbness ROS Unobtainable: All systems reviewed & are unremarkable except as noted in HPI and below Patient History <Gio Childress MD - Last Filed: 01/08/21 01:28> Medical History Alcohol abuse Asthma Bunion, left Diabetes History of ectopic Hypertension Smoker Surgical History Postsurgical arthrodesis status (~2007) Social History household members: spouse Smoking Status: Current every day smoker alcohol intake: current Smoking Status: Current every day smoker alcohol intake frequency: 3 or more drinks per day Substance Use Type: does not use Exam <Gio Childress MD - Last Filed: 01/08/21 01:28> Narrative Exam Narrative: GENERAL: in no distress, not toxic not dyspneic HEAD: Normocephalic. EYES: Pupils equal round No scleral icterus ENT: Mucous membranes moist. NECK: Trachea midline. CARDIOVASCULAR: Regular rate and rhythm without murmurs RESPIRATORY: Clear to auscultation. Breath sounds equal bilaterally. No wheezes, rales, or rhonchi. GASTROINTESTINAL: Abdomen soft, non-tender EXTREMITIES: No gross deformities. BACK: No flank tenderness. NEURO: Patient is awake alert to self and answers questions SKIN: Warm and dry PSYCH: Not anxious, is cooperative Initial Vital Signs Initial Vital Signs: Vital Signs Temperature 98.6 F 12/29/20 18:50 Pulse Rate 79 12/29/20 18:50 Respiratory Rate 20 12/29/20 18:50 Blood Pressure 87/54 L 12/29/20 18:50 Pulse Oximetry 95 12/29/20 18:50 <Navjot Yanez DO - Last Filed: 12/30/20 01:54> Initial Vital Signs Initial Vital Signs: Vital Signs Temperature 98.6 F 12/29/20 18:50 Pulse Rate 79 12/29/20 18:50 Respiratory Rate 20 12/29/20 18:50 Blood Pressure 87/54 L 12/29/20 18:50 Pulse Oximetry 95 12/29/20 18:50 <Sandy Dawson DO - Last Filed: 12/31/20 11:04> Initial Vital Signs Initial Vital Signs: Vital Signs Temperature 98.6 F 12/29/20 18:50 Pulse Rate 79 06/22/21 18:50 Respiratory Rate 20 12/29/20 18:50 Blood Pressure 87/54 L 12/29/20 18:50 Pulse Oximetry 95 12/29/20 18:50 Course <Gio Childress MD - Last Filed: 01/08/21 01:28> Orders Ordered: Discontinued Medications Lorazepam (Lorazepam 0.5 Mg Tablet) 1 mg PO NOW ONE Stop: 12/29/20 21:46 Last Admin: 12/29/20 22:20 Dose: 1 mg Documented by: PATY Vital Signs Vital signs: Vital Signs - 8 hr 12/29/20 18:50 12/29/20 20:25 12/29/20 23:05 Temperature 98.6 F Pulse Rate 79 78 Respiratory Rate 20 18 Blood Pressure 87/54 L 113/77 114/64 Pulse Oximetry 95 100 99 <Navjot Yanez DO - Last Filed: 12/30/20 01:54> Course Course Narrative: Patient received in sign-out from Dr. Childress. I performed an independent history and physical exam. Patient is alert and oriented, speaking clearly and walking a straight line without stumbling. She states that she hopes to quit drinking and requests a prescription to help her avoid withdrawal type symptoms. Orders Ordered: Discontinued Medications Lorazepam (Lorazepam 0.5 Mg Tablet) 1 mg PO NOW ONE Stop: 12/29/20 21:46 Last Admin: 12/29/20 22:20 Dose: 1 mg Documented by: PATY Vital Signs Vital signs: Vital Signs - 8 hr 12/29/20 18:50 12/29/20 20:25 12/29/20 23:05 Temperature 98.6 F Pulse Rate 79 78 Respiratory Rate 20 18 Blood Pressure 87/54 L 113/77 114/64 Pulse Oximetry 95 100 99 <Sandy Dawson DO - Last Filed: 12/31/20 11:04> Orders Ordered: Discontinued Medications Lorazepam (Lorazepam 0.5 Mg Tablet) 1 mg PO NOW ONE Stop: 12/29/20 21:46 Last Admin: 12/29/20 22:20 Dose: 1 mg Documented by: PATY Vital Signs Vital signs: Vital Signs - 8 hr 12/29/20 18:50 12/29/20 20:25 12/29/20 23:05 Temperature 98.6 F Pulse Rate 79 78 Respiratory Rate 20 18 Blood Pressure 87/54 L 113/77 114/64 Pulse Oximetry 95 100 99 Medical Decision Making <Gio Childress MD - Last Filed: 01/08/21 01:28> Lab Data Result diagrams: 12/29/20 20:12 12/29/20 20:12 Labs: Lab Results 12/29/20 12/29/20 12/29/20 Range/Units 20:12 20:12 20:12 WBC 5.1 (4.5-11.0) X10^3/uL RBC 3.93 L (4.0-5.2) X10^6/uL Hgb 13.9 (12.0-16.0) g/dL Hct 41.6 (36-46) % MCV 106.0 H (80-100) fL MCH 35.4 H (26-34) PG MCHC 33.4 (30-36) % RDW 14.7 (11.6-14.8) % Plt Count 236 (150-400) X10^3/uL Neut % (Auto) 42.9 L (50-75) % Lymph % (Auto) 47.6 H (25-40) % [place] % (Auto) 5.6 (3-14) % Eos % (Auto) 2.8 (2-4) % Baso % (Auto) 1.1 (0-2) % Neut # (Auto) 2200 (1429-5319) /uL Lymph # (Auto) 2400 (4242-3222) /uL [place] # (Auto) 300 (0-900) /uL Eos # (Auto) 100 (0-450) /uL Baso # (Auto) 100 (0-100) /uL Sodium 147 H (137-145) mmol/L Potassium 3.6 (3.4-5.1) mmol/L Chloride 107 (98-107) mmol/L Carbon Dioxide 28 (22-32) mmol/L BUN 16 (7-17) mg/dL Creatinine 1.29 H (0.52-1.04) mg/dL Estimated GFR 42.3 L (>60) mL/min BUN/Creatinine Ratio 12.4 (6-22) Glucose 60 L (70-100) mg/dL Calcium 9.1 (8.4-10.2) mg/dL Phosphorus 6.0 H (2.5-4.5) mg/dL Magnesium 1.9 (1.6-2.3) mg/dL Total Bilirubin 0.2 (0.2-1.3) mg/dL Conjugated Bilirubin 0.0 (0.0-0.3) md/dL Unconjugated Bilirubin 0.0 (0.0-1.1) mg/dL AST 68 H (14-36) IU/L ALT 30 (<35) IU/L Alkaline Phosphatase 76 (38-126) U/L Total Creatine Kinase (30-135) U/L CK-MB (CK-2) (<2.37) ng/mL CK-MB (CK-2) Rel Index (1.5-5.0) % Troponin I (0.01-0.034) ng/mL Total Protein 7.0 (6.3-8.2) g/dL Albumin 4.1 (3.5-5.0) g/dL Globulin 2.9 (1.7-4.1) g/dL Albumin/Globulin Ratio 1.4 (1.0-2.8) Lipase 216 (23-300) U/L Ethyl Alcohol > 300 H 421 H* ( - 10) mg/dL 12/29/ Range/Units 20:12 WBC (4.5-11.0) X10^3/uL RBC (4.0-5.2) X10^6/uL Hgb (12.0-16.0) g/dL Hct (36-46) % MCV (80-100) fL MCH (26-34) PG MCHC (30-36) % RDW (11.6-14.8) % Plt Count (150-400) X10^3/uL Neut % (Auto) (50-75) % Lymph % (Auto) (25-40) % [place] % (Auto) (3-14) % Eos % (Auto) (2-4) % Baso % (Auto) (0-2) % Neut # (Auto) (7928-2505) /uL Lymph # (Auto) (8413-8332) /uL [place] # (Auto) (0-900) /uL Eos # (Auto) (0-450) /uL Baso # (Auto) (0-100) /uL Sodium (137-145) mmol/L Potassium (3.4-5.1) mmol/L Chloride (98-107) mmol/L Carbon Dioxide (22-32) mmol/L BUN (7-17) mg/dL Creatinine (0.52-1.04) mg/dL Estimated GFR (>60) mL/min BUN/Creatinine Ratio (6-22) Glucose (70-100) mg/dL Calcium (8.4-10.2) mg/dL Phosphorus (2.5-4.5) mg/dL Magnesium (1.6-2.3) mg/dL Total Bilirubin (0.2-1.3) mg/dL Conjugated Bilirubin (0.0-0.3) md/dL Unconjugated Bilirubin (0.0-1.1) mg/dL AST (14-36) IU/L ALT (<35) IU/L Alkaline Phosphatase (38-126) U/L Total Creatine Kinase 322 H (30-135) U/L CK-MB (CK-2) 4.65 H (<2.37) ng/mL CK-MB (CK-2) Rel Index 1.4 L (1.5-5.0) % Troponin I < 0.012 (0.01-0.034) ng/mL Total Protein (6.3-8.2) g/dL Albumin (3.5-5.0) g/dL Globulin (1.7-4.1) g/dL Albumin/Globulin Ratio (1.0-2.8) Lipase (23-300) U/L Ethyl Alcohol ( - 10) mg/dL <Navjot Yanez, DO - Last Filed: 12/30/20 01:54> Lab Data Labs: Lab Results 12/29/20 12/29/20 12/29/20 Range/Units 20:12 20:12 20:12 WBC 5.1 (4.5-11.0) X10^3/uL RBC 3.93 L (4.0-5.2) X10^6/uL Hgb 13.9 (12.0-16.0) g/dL Hct 41.6 (36-46) % MCV 106.0 H (80-100) fL MCH 35.4 H (26-34) PG MCHC 33.4 (30-36) % RDW 14.7 (11.6-14.8) % Plt Count 236 (150-400) X10^3/uL Neut % (Auto) 42.9 L (50-75) % Lymph % (Auto) 47.6 H (25-40) % [place] % (Auto) 5.6 (3-14) % Eos % (Auto) 2.8 (2-4) % Baso % (Auto) 1.1 (0-2) % Neut # (Auto) 2200 (2204-7467) /uL Lymph # (Auto) 2400 (9048-8770) /uL [place] # (Auto) 300 (0-900) /uL Eos # (Auto) 100 (0-450) /uL Baso # (Auto) 100 (0-100) /uL Sodium 147 H (137-145) mmol/L Potassium 3.6 (3.4-5.1) mmol/L Chloride 107 (98-107) mmol/L Carbon Dioxide 28 (22-32) mmol/L BUN 16 (7-17) mg/dL Creatinine 1.29 H (0.52-1.04) mg/dL Estimated GFR 42.3 L (>60) mL/min BUN/Creatinine Ratio 12.4 (6-22) Glucose 60 L (70-100) mg/dL Calcium 9.1 (8.4-10.2) mg/dL Phosphorus 6.0 H (2.5-4.5) mg/dL Magnesium 1.9 (1.6-2.3) mg/dL Total Bilirubin 0.2 (0.2-1.3) mg/dL Conjugated Bilirubin 0.0 (0.0-0.3) md/dL Unconjugated Bilirubin 0.0 (0.0-1.1) mg/dL AST 68 H (14-36) IU/L ALT 30 (<35) IU/L Alkaline Phosphatase 76 (38-126) U/L Total Creatine Kinase (30-135) U/L CK-MB (CK-2) (<2.37) ng/mL CK-MB (CK-2) Rel Index (1.5-5.0) % Troponin I (0.01-0.034) ng/mL Total Protein 7.0 (6.3-8.2) g/dL Albumin 4.1 (3.5-5.0) g/dL Globulin 2.9 (1.7-4.1) g/dL Albumin/Globulin Ratio 1.4 (1.0-2.8) Lipase 216 (23-300) U/L Ethyl Alcohol > 300 H 421 H* ( - 10) mg/dL 12/29/ Range/Units 20:12 WBC (4.5-11.0) X10^3/uL RBC (4.0-5.2) X10^6/uL Hgb (12.0-16.0) g/dL Hct (36-46) % MCV (80-100) fL MCH (26-34) PG MCHC (30-36) % RDW (11.6-14.8) % Plt Count (150-400) X10^3/uL Neut % (Auto) (50-75) % Lymph % (Auto) (25-40) % [place] % (Auto) (3-14) % Eos % (Auto) (2-4) % Baso % (Auto) (0-2) % Neut # (Auto) (9194-6344) /uL Lymph # (Auto) (5780-3967) /uL [place] # (Auto) (0-900) /uL Eos # (Auto) (0-450) /uL Baso # (Auto) (0-100) /uL Sodium (137-145) mmol/L Potassium (3.4-5.1) mmol/L Chloride (98-107) mmol/L Carbon Dioxide (22-32) mmol/L BUN (7-17) mg/dL Creatinine (0.52-1.04) mg/dL Estimated GFR (>60) mL/min BUN/Creatinine Ratio (6-22) Glucose (70-100) mg/dL Calcium (8.4-10.2) mg/dL Phosphorus (2.5-4.5) mg/dL Magnesium (1.6-2.3) mg/dL Total Bilirubin (0.2-1.3) mg/dL Conjugated Bilirubin (0.0-0.3) md/dL Unconjugated Bilirubin (0.0-1.1) mg/dL AST (14-36) IU/L ALT (<35) IU/L Alkaline Phosphatase (38-126) U/L Total Creatine Kinase 322 H (30-135) U/L CK-MB (CK-2) 4.65 H (<2.37) ng/mL CK-MB (CK-2) Rel Index 1.4 L (1.5-5.0) % Troponin I < 0.012 (0.01-0.034) ng/mL Total Protein (6.3-8.2) g/dL Albumin (3.5-5.0) g/dL Globulin (1.7-4.1) g/dL Albumin/Globulin Ratio (1.0-2.8) Lipase (23-300) U/L Ethyl Alcohol ( - 10) mg/dL <Sandy Dawson, DO - Last Filed: 12/31/20 11:04> Lab Data Labs: Lab Results 12/29/20 12/29/20 12/29/20 Range/Units 20:12 20:12 20:12 WBC 5.1 (4.5-11.0) X10^3/uL RBC 3.93 L (4.0-5.2) X10^6/uL Hgb 13.9 (12.0-16.0) g/dL Hct 41.6 (36-46) % MCV 106.0 H (80-100) fL MCH 35.4 H (26-34) PG MCHC 33.4 (30-36) % RDW 14.7 (11.6-14.8) % Plt Count 236 (150-400) X10^3/uL Neut % (Auto) 42.9 L (50-75) % Lymph % (Auto) 47.6 H (25-40) % [place] % (Auto) 5.6 (3-14) % Eos % (Auto) 2.8 (2-4) % Baso % (Auto) 1.1 (0-2) % Neut # (Auto) 2200 (7175-5324) /uL Lymph # (Auto) 2400 (2880-3898) /uL [place] # (Auto) 300 (0-900) /uL Eos # (Auto) 100 (0-450) /uL Baso # (Auto) 100 (0-100) /uL Sodium 147 H (137-145) mmol/L Potassium 3.6 (3.4-5.1) mmol/L Chloride 107 (98-107) mmol/L Carbon Dioxide 28 (22-32) mmol/L BUN 16 (7-17) mg/dL Creatinine 1.29 H (0.52-1.04) mg/dL Estimated GFR 42.3 L (>60) mL/min BUN/Creatinine Ratio 12.4 (6-22) Glucose 60 L (70-100) mg/dL Calcium 9.1 (8.4-10.2) mg/dL Phosphorus 6.0 H (2.5-4.5) mg/dL Magnesium 1.9 (1.6-2.3) mg/dL Total Bilirubin 0.2 (0.2-1.3) mg/dL Conjugated Bilirubin 0.0 (0.0-0.3) md/dL Unconjugated Bilirubin 0.0 (0.0-1.1) mg/dL AST 68 H (14-36) IU/L ALT 30 (<35) IU/L Alkaline Phosphatase 76 (38-126) U/L Total Creatine Kinase (30-135) U/L CK-MB (CK-2) (<2.37) ng/mL CK-MB (CK-2) Rel Index (1.5-5.0) % Troponin I (0.01-0.034) ng/mL Total Protein 7.0 (6.3-8.2) g/dL Albumin 4.1 (3.5-5.0) g/dL Globulin 2.9 (1.7-4.1) g/dL Albumin/Globulin Ratio 1.4 (1.0-2.8) Lipase 216 (23-300) U/L Ethyl Alcohol > 300 H 421 H* ( - 10) mg/dL // Range/Units 20:12 WBC (4.5-11.0) X10^3/uL RBC (4.0-5.2) X10^6/uL Hgb (12.0-16.0) g/dL Hct (36-46) % MCV (80-100) fL MCH (26-34) PG MCHC (30-36) % RDW (11.6-14.8) % Plt Count (150-400) X10^3/uL Neut % (Auto) (50-75) % Lymph % (Auto) (25-40) % [place] % (Auto) (3-14) % Eos % (Auto) (2-4) % Baso % (Auto) (0-2) % Neut # (Auto) (4737-1512) /uL Lymph # (Auto) (8976-7460) /uL [place] # (Auto) (0-900) /uL Eos # (Auto) (0-450) /uL Baso # (Auto) (0-100) /uL Sodium (137-145) mmol/L Potassium (3.4-5.1) mmol/L Chloride (98-107) mmol/L Carbon Dioxide (22-32) mmol/L BUN (7-17) mg/dL Creatinine (0.52-1.04) mg/dL Estimated GFR (>60) mL/min BUN/Creatinine Ratio (6-22) Glucose (70-100) mg/dL Calcium (8.4-10.2) mg/dL Phosphorus (2.5-4.5) mg/dL Magnesium (1.6-2.3) mg/dL Total Bilirubin (0.2-1.3) mg/dL Conjugated Bilirubin (0.0-0.3) md/dL Unconjugated Bilirubin (0.0-1.1) mg/dL AST (14-36) IU/L ALT (<35) IU/L Alkaline Phosphatase (38-126) U/L Total Creatine Kinase 322 H (30-135) U/L CK-MB (CK-2) 4.65 H (<2.37) ng/mL CK-MB (CK-2) Rel Index 1.4 L (1.5-5.0) % Troponin I < 0.012 (0.01-0.034) ng/mL Total Protein (6.3-8.2) g/dL Albumin (3.5-5.0) g/dL Globulin (1.7-4.1) g/dL Albumin/Globulin Ratio (1.0-2.8) Lipase (23-300) U/L Ethyl Alcohol ( - 10) mg/dL MDM Narrative Medical decision making narrative: Pharmacy is called 2 days in a row now unable to fill prescription. Prescription is changed to Ativan 1 mg 3 times a day for 1 day, will 1 mg twice a day for 1 day then 1 mg once a day for 1 Discharge Plan Departure Patient Disposition: Home Clinical Impression: Alcoholic intoxication Qualifiers: Complication of substance-induced condition: uncomplicated Qualified Code(s): F10.920 - Alcohol use, unspecified with intoxication, uncomplicated Instructions: DI for Alcohol Use Disorder Activity Restrictions/Additional Instructions: *You have been diagnosed with [alcohol intoxication] *What to do: *Please continue to take your regular medications as directed. [ x] New medication prescriptions sent to your pharmacy: [[facility] ] [ ] New medication written as a paper prescription [ ] No new medications given *Please follow up with your primary care provider in 2-3 days, call for an appointment. Let them know you were seen in the Emergency Department and that we ask that you be seen in follow up. We will electronically transmit a record of today's note if your PCP is in our system *If you do not have a primary care provider please contact the [facility] line at [phone]. They will ask some questions about your medical history and help get you set up with a doctor in the community. *Return to Emergency Department if you should have any new, worsening or concerning symptoms, such as [fever greater than 101 F, shaking chills, worsening pain, persistent vomiting or other bothersome symptoms] Prescriptions: New chlordiazepoxide HCl 25 mg capsule See Rx Instructions .ROUTE .COMPLEX PRN (Reason: alcohol withdrawal) Qty: 32 RF: 0 No Action lisinopril 20 mg tablet 20 mg PO DAILY RF: 0 glipizide 10 mg tablet 10 mg PO BID RF: 0 albuterol sulfate 90 mcg/actuation HFA aerosol inhaler 2 dose Inhalation Q4-6H PRN (Reason: Wheezing) RF: 0 metformin 1,000 mg tablet 500 mg PO BID RF: 0 lidocaine 5 % adhesive patch,medicated 1 patch TOP DAILY MDD 12 hours in a 24 hour period Qty: 30 RF: 5 celecoxib [Celebrex] 200 mg capsule 200 mg PO DAILY Qty: 30 RF: 2 methocarbamol 500 mg tablet 500 mg PO Q6H PRNRF: 0 Referrals: Edgardo Plunkett DO [Primary Care Provider] -
--- NOTE | 2020-12-29 17:51 | DI.CT.S_ITS ---
PROCEDURE: CT HEAD/BRAIN WO CON INDICATIONS: Altered mental status TECHNIQUE: Noncontrast 4.5 mm thick angled axial sections acquired from the foramen magnum to the vertex, with coronal and sagittal reformats. For radiation dose reduction, the following was used: automated exposure control, adjustment of mA and/or kV according to patient size. COMPARISON: None. FINDINGS: Image quality: Excellent. CSF spaces: Basal cisterns are patent. No extra-axial fluid collections. Ventricles are normal in size and shape. Brain: No midline shift. No intracranial masses or hemorrhage. Roa-white matter interface is normal. Skull and face: Calvarium and visualized facial bones are intact, without suspicious lesions. Sinuses: Visualized sinuses and mastoids are clear. IMPRESSION: 1. No acute intracranial process. Dictated by: Mary Mario M.D. on 12/29/2020 at 18:19 Approved by: Mary Mario M.D. on 12/29/2020 at 18:20
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
[2020-12-29 18:50] VITALS: BP 87/54; PULSE 79; RESP 20; TEMP 37; O2SAT 95
--- NOTE | 2020-12-29 18:54 | PC.NURSE ---
Bp 87/54. Pt awake and alert. intoxicated. protecting airway. confused. oriented pt that she is in the ED. refusing lab draw. refusing IV. when asked why pt is refusing treatment pt stated because you're a bitch
[2020-12-29 20:20] LABS: Add Manual Diff / Slide Review NO; Basophils Absolute Auto 100 /uL (0-100); Basophils Percent Auto 1.1 % (0-2); Eosinophils Absolute Auto 100 /uL (0-450); Eosinophils Percent Auto 2.8 % (2-4); Hematocrit 41.6 % (36-46); Hemoglobin 13.9 g/dL (12.0-16.0); Lymphocytes Absolute Auto 2400 /uL (1100-4500); Lymphocytes Percent Auto 47.6 % (25-40); Mean Corpuscular HGB Conc 33.4 % (30-36); Mean Corpuscular Hemoglobin 35.4 PG (26-34); Monocytes Absolute Auto 300 /uL (0-900); Monocytes Percent Auto 5.6 % (3-14); Neutrophils Absolute Auto 2200 /uL (1500-7000); Neutrophils Percent Auto 42.9 % (50-75); Platelet Count 236 X10^3/uL (150-400); Red Blood Cell Count 3.93 X10^6/uL (4.0-5.2); Red Cell Distribution Width 14.7 % (11.6-14.8); White Blood Cell Count 5.1 X10^3/uL (4.5-11.0)
[2020-12-29 20:25] VITALS: BP 113/77; O2SAT 100
[2020-12-29 20:31] LABS: Alanine Aminotransferase 30 IU/L (<35); Albumin 4.1 g/dL (3.5-5.0); Alkaline Phosphatase 76 U/L (38-126); Aspartate Aminotransferase 68 IU/L (14-36); BUN Creatinine Ratio 12.4 (6-22); Bilirubin Total 0.2 mg/dL (0.2-1.3); Blood Urea Nitrogen 16 mg/dL (7-17); Calcium 9.1 mg/dL (8.4-10.2); Carbon Dioxide 28 mmol/L (22-32); Chloride 107 mmol/L (98-107); Creatine Kinase 322 U/L (30-135); Estimated Glomerular Filt Rate 42.3 mL/min (>60); Globulin 2.9 g/dL (1.7-4.1); Glucose 60 mg/dL (70-100); Magnesium 1.9 mg/dL (1.6-2.3); Potassium 3.6 mmol/L (3.4-5.1); Sodium 147 mmol/L (137-145)
[2020-12-29 20:32] LABS: Albumin Globulin Ratio 1.4 (1.0-2.8); Ethanol (ETOH) > 300 mg/dL; HEMOLYSIS < 15 (0-50); Lipase 216 U/L (23-300)
[2020-12-29 20:38] LABS: Ethanol (ETOH) 421 mg/dL
[2020-12-29 20:42] LABS: Troponin I < 0.012 ng/mL (0.01-0.034)
--- NOTE | 2020-12-29 20:44 | PC.NURSE ---
Patient was getting upset so I talked with her about one of her interests. She expressed her desire to go home so I let her know that we were working on that and we would absolutely come in and update her soon.
[2020-12-29 20:47] LABS: CKMB % Relative Index 1.4 % (1.5-5.0); Creatine Kinase MB 4.65 ng/mL (<2.37)
--- NOTE | 2020-12-29 21:17 | PC.NURSE ---
Pt AAO x 3, refusing all treatments and wants to go home. Dr Yanez aware. Attempting to call for pickup
[2020-12-29] MEDS: LORazepam 0.5 MG TABLET 1 MG PO (22:20)
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
[2020-12-29 23:05] VITALS: BP 114/64; PULSE 78; RESP 18; O2SAT 99
== END 2020-12-29 23:05 | disposition home or self-care (01) ==
PROVIDERS: Emergency Medicine; Emergency Provider Emergency Medicine; PCP Family Medicine
DX: F10.129 Alcohol abuse with intoxication, unspecified (principal); Y90.8 Blood alcohol level of 240 mg/100 ml or more; R41.82 Altered mental status, unspecified
CPT/HCPCS: 36415; 70450; 80053; 80076; 80320; 82550; 82553; 83690; 83735; 84100; 84484; 85025; 99284